=== PATIENT | male | born 1960 | race Caucasian/White ===

== ENCOUNTER 2017-08-17 12:07 | Observation (INO) | payer MEDICAID, OTHER ==
[~2017-08-17] VITALS: Ht 185.4 cm; Wt 113.6 kg
[~2017-08-17 12:07] MED LIST: ALBU8.5H8 IH; AZIT250T PO; PSEU-259 PO
[2017-08-17 12:30] LABS: BASOPHILS % (AUTO) 0.5 % (0-1); EOSINOPHILS # (AUTO) 0.4 X10'3 (0-0.9); EOSINOPHILS % (AUTO) 5.1 % (0-6); LYMPHOCYTES # (AUTO) 2.1 X10'3 (1.1-4.8); LYMPHOCYTES % (AUTO) 25.8 % (21-51); MEAN CORPUSCULAR HEMOGLOBIN 30.9 PG (27.0-31.0); MEAN CORPUSCULAR HGB CONC 34.9 % (33.0-36.5); MEAN CORPUSCULAR VOLUME 88.6 FL (78-98); MEAN PLATELET VOLUME 7.2 FL (7.4-10.4); MONOCYTES # (AUTO) 0.6 X10'3 (0-0.9); MONOCYTES % (AUTO) 7.1 % (2-12); NEUTROPHILS % (AUTO) 61.5 % (42-75); PLATELET COUNT 149 X10'3 (140-440); RED BLOOD COUNT 4.85 X10'6 (4.70-6.10); RED CELL DISTRIBUTION WIDTH 13.4 % (11.5-14.5); WHITE BLOOD COUNT 8.1 X10'3 (4.5-11.0)
[2017-08-17 12:38] LABS: PARTIAL THROMBOPLASTIN TIME 26 SECONDS (22-32); PROTHROMBIN TIME 10.5 SECONDS (9.0-12.0)
[2017-08-17 12:45] LABS: ALANINE AMINOTRANSFERASE 36 U/L (12-78); ALBUMIN 3.9 G/DL (3.4-5.0); ALKALINE PHOSPHATASE 158 IU/L (46-116); ANION GAP 11 (8-16); ASPARTATE AMINO TRANSFERASE 41 U/L (10-37); BILIRUBIN,TOTAL 0.5 MG/DL (0.1-1.0); BLOOD UREA NITROGEN 15 MG/DL (7-18); BUN/CREATININE RATIO 15.2 (5.4-32.0); CALCIUM 8.9 MG/DL (8.5-10.1); CHLORIDE 103 MMOL/L (99-107); CREATININE 0.99 MG/DL (0.60-1.10); GLUCOSE 102 MG/DL (70-104); POTASSIUM 3.8 MMOL/L (3.5-5.1); SODIUM 139 MMOL/L (135-145); TOTAL PROTEIN 7.7 G/DL (6.4-8.2); eGFR 77 ML/MIN
[2017-08-17] MEDS ORDERED: aspirin 325mg tablet PO ONE (12:50)
[2017-08-17] MEDS ORDERED: iohexol 350MG/ML 100ml bottle IV ONE (13:11)
[2017-08-17] MEDS ORDERED: LURA80TA3 PO (14:30)
[2017-08-17] MEDS ORDERED: FLUO20CA39 PO (14:30)
[2017-08-17] MEDS ORDERED: magnesium 4gm in 100ml NS 100 ML IV PRN (16:10)
[2017-08-17] MEDS ORDERED: HYDROcodone/acetaminophen 10/325mg tab PO PRN (16:10)
[2017-08-17] MEDS ORDERED: magnesium Cl slow-release 64mg tablet PO PRN (16:10)
[2017-08-17] MEDS ORDERED: magnesium hydroxide 30ml (MOM) UD suspension PO PRN (16:10)
[2017-08-17] MEDS ORDERED: morphine 4 MG/ML inj SYRINge IV PRN ×2 (16:10)
[2017-08-17] MEDS ORDERED: nitroGLYCERIN 0.4mg SUBLingual tab SL PRN (16:10)
[2017-08-17] MEDS ORDERED: potassium Cl 40MEQ/NS 500ml 500 ML IV PRN ×2 (16:10)
[2017-08-17] MEDS ORDERED: diphenhydrAMINE 25mg capsule PO PRN (16:10)
[2017-08-17] MEDS ORDERED: magnesium/D5W IVPB 50 ML IV PRN (16:10)
[2017-08-17] MEDS ORDERED: acetaminophen 325mg tablet PO PRN ×2 (16:10)
[2017-08-17] MEDS ORDERED: metoprolol tartrate 1mg/ml inj IV PRN (16:10)
[2017-08-17] MEDS ORDERED: mag hydrox/Alum hydrox/simeth 30ml oral suspension PO PRN (16:10)
[2017-08-17] MEDS ORDERED: potassium Cl 20 mEq SR tablet PO PRN ×2 (16:10)
[2017-08-17] MEDS: K and/or MAG REPLACEMENT MC SCH (16:10)
[2017-08-17] MEDS ORDERED: ondansetron/PF 4mg/2ml inj IV PRN (16:10)
[2017-08-17] MEDS ORDERED: HYDROcodone/acetaminophen 5mg/325mg tablet PO PRN (16:10)
[2017-08-17] MEDS ORDERED: regadenoson 0.4mg/5ml syringe IV PRN (16:10)
[2017-08-17] MEDS ORDERED: CAFFEINE CITRATE 60 MG/3 ML injection vial IV PRN (16:10)
[2017-08-17 17:23] LABS: HEMOGLOBIN A1C 5.7 % (4.5-6.2)
[2017-08-17] MEDS: enoxaparin 40mg/0.4ml syringe SUBCUT SCH (19:30)
[2017-08-17] MEDS: normal saline 1000ml 1,000 ML IV SCH (19:30)
[2017-08-17] MEDS ORDERED: lurasidone 20mg tablet PO SCH (21:00)
[2017-08-17 23:00] VITALS: BP 127/91
[2017-08-18] VITALS (12 sets, daily range): BP systolic 109–145; BP diastolic 65–101
[2017-08-18 00:52] LABS: ALANINE AMINOTRANSFERASE 29 U/L (12-78); ALBUMIN 3.2 G/DL (3.4-5.0); ALBUMIN/GLOBULIN RATIO 0.9 (1.1-1.5); ALKALINE PHOSPHATASE 132 IU/L (46-116); ANION GAP 8 (8-16); ASPARTATE AMINO TRANSFERASE 36 U/L (10-37); BASOPHILS % (AUTO) 0.5 % (0-1); BILIRUBIN,TOTAL 0.5 MG/DL (0.1-1.0); BLOOD UREA NITROGEN 13 MG/DL (7-18); BUN/CREATININE RATIO 13.5 (5.4-32.0); CALCIUM 8.3 MG/DL (8.5-10.1); CHLORIDE 105 MMOL/L (99-107); CHOL/HDL RATIO 5.2 (0.00-4.99); CHOLESTEROL 134 MG/DL (0-200); CREATININE 0.96 MG/DL (0.60-1.10); EOSINOPHILS # (AUTO) 0.5 X10'3 (0-0.9); EOSINOPHILS % (AUTO) 7.8 % (0-6); GLUCOSE 107 MG/DL (70-104); HDL CHOLESTEROL 26 MG/DL (35-60); HEMATOCRIT 41.4 % (42.0-52.0); LDL CHOLESTEROL 94 MG/DL (50-100); LYMPHOCYTES # (AUTO) 1.9 X10'3 (1.1-4.8); MEAN CORPUSCULAR HEMOGLOBIN 30.5 PG (27.0-31.0); MEAN CORPUSCULAR HGB CONC 33.8 % (33.0-36.5); MEAN CORPUSCULAR VOLUME 90.1 FL (78-98); MEAN PLATELET VOLUME 7.8 FL (7.4-10.4); MONOCYTES # (AUTO) 0.6 X10'3 (0-0.9); NEUTROPHILS # (AUTO) 3.4 X10'3 (1.8-7.7); NEUTROPHILS % (AUTO) 53.7 % (42-75); PHOSPHORUS 2.9 MG/DL (2.3-4.5); PLATELET COUNT 125 X10'3 (140-440); POTASSIUM 3.3 MMOL/L (3.5-5.1); RED BLOOD COUNT 4.59 X10'6 (4.70-6.10); RED CELL DISTRIBUTION WIDTH 12.2 % (11.5-14.5); SODIUM 140 MMOL/L (135-145); TOTAL CARBON DIOXIDE 27.5 MMOL/L (24-32); TOTAL PROTEIN 6.7 G/DL (6.4-8.2); TRIGLYCERIDES 209 MG/DL (20-135); WHITE BLOOD COUNT 6.4 X10'3 (4.5-11.0); eGFR 80 ML/MIN
[2017-08-18] MEDS: normal saline 1000ml 1,000 ML IV SCH ×3 (02:09→11:37)
[2017-08-18] MEDS: K and/or MAG REPLACEMENT MC SCH (07:31)
[2017-08-18] MEDS: enoxaparin 40mg/0.4ml syringe SUBCUT SCH (07:31)
[2017-08-18] MEDS ORDERED: FLUoxetine 20mg capsule PO SCH (08:00)
[2017-08-18] MEDS ORDERED: CAFFEINE CITRATE 60 MG/3 ML injection vial IV ONE (09:16)
[2017-08-18] MEDS ORDERED: regadenoson 0.4mg/5ml syringe IV ONE (09:16)
[2017-08-18] MEDS ORDERED: NITR0.4T51 SL (14:05)
[2017-08-18] MEDS ORDERED: CARV3.12 PO (14:06)
[2017-08-18] MEDS ORDERED: ASPI-611 PO (14:06)
[2017-08-18] MEDS ORDERED: ATOR20TA66 PO (14:52)
== END 2017-08-18 15:20 | disposition home or self-care (01) ==
LOC: ER 12:07 → ED HOLD 16:09 → PCU 3S 18:12
PROVIDERS: ADMIT Family Medicine; ATTEND Family Medicine
DX: R07.89 Other chest pain (principal); F20.9 Schizophrenia, unspecified; F31.9 Bipolar disorder, unspecified; I25.10 Atherosclerotic heart disease of native coronary artery without angina pectoris; J43.9 Emphysema, unspecified; F42.9 Obsessive-compulsive disorder, unspecified; F41.9 Anxiety disorder, unspecified; I25.2 Old myocardial infarction; F12.90 Cannabis use, unspecified, uncomplicated; F15.90 Other stimulant use, unspecified, uncomplicated; Z79.82 Long term (current) use of aspirin; Z85.038 Personal history of other malignant neoplasm of large intestine; Z87.891 Personal history of nicotine dependence; Z90.49 Acquired absence of other specified parts of digestive tract
CPT/HCPCS: 36415; 71045; 71275; 78452; 80053; 80061; 83036; 83735; 84100; 84484; 85025; 85610; 85730; 87070; 93005; 93017; 93306; 96361; 96372; 96374; 99285; A9500; G0378; J1650; J7030; Q9967

== ENCOUNTER 2017-08-28 16:46 | Emergency (ER) | payer MEDICAID, OTHER ==
[~2017-08-28] VITALS: Ht 185.4 cm; Wt 116.2 kg
[~2017-08-28 16:46] MED LIST changes: -ALBU8.5H8 IH; +ASPI-611 PO; +ATOR20TA66 PO; -AZIT250T PO; +CARV3.12 PO; +FLUO20CA39 PO; +LURA80TA3 PO; +NITR0.4T51 SL; -PSEU-259 PO
[2017-08-28 16:53] VITALS: BP 148/88
[2017-08-28] MEDS ORDERED: ACYC-202 PO (17:08)
[2017-08-28] MEDS ORDERED: SULF1TAB49 PO (17:08)
[2017-08-28] MEDS ORDERED: sulfamethoxazole/trimethoprim DS (800/160mg) tablet PO ONE (17:10)
== END 2017-08-28 17:29 | disposition home or self-care (01) ==
LOC: ER 16:46
DX: R21 Rash and other nonspecific skin eruption (principal); I25.10 Atherosclerotic heart disease of native coronary artery without angina pectoris; I25.2 Old myocardial infarction; J43.9 Emphysema, unspecified; F12.90 Cannabis use, unspecified, uncomplicated; F15.90 Other stimulant use, unspecified, uncomplicated; Z56.0 Unemployment, unspecified; Z88.8 Allergy status to other drugs, medicaments and biological substances; Z79.82 Long term (current) use of aspirin; Z79.899 Other long term (current) drug therapy
CPT/HCPCS: 99283

== ENCOUNTER 2017-10-30 11:15 | Emergency (ER) | payer MEDICAID, OTHER ==
[~2017-10-30] VITALS: Ht 185.4 cm; Wt 113.6 kg
[~2017-10-30 11:15] MED LIST changes: -ASPI-611 PO
[2017-10-30] MEDS ORDERED: nitroGLYCERIN 0.4mg SUBLingual tab SL PRN (11:30)
[2017-10-30] MEDS ORDERED: aspirin 81mg tab.chew PO ONE (11:30)
[2017-10-30 11:37] LABS: BASOPHILS % (AUTO) 0.6 % (0-1); EOSINOPHILS # (AUTO) 0.2 X10'3 (0-0.9); EOSINOPHILS % (AUTO) 2.1 % (0-6); HEMATOCRIT 43.7 % (42.0-52.0); HEMOGLOBIN 15.3 g/dl (14.0-17.9); LYMPHOCYTES # (AUTO) 1.9 X10'3 (1.1-4.8); LYMPHOCYTES % (AUTO) 23.4 % (21-51); MEAN CORPUSCULAR HEMOGLOBIN 32.1 PG (27.0-31.0); MEAN CORPUSCULAR HGB CONC 34.9 % (33.0-36.5); MEAN PLATELET VOLUME 6.9 FL (7.4-10.4); MONOCYTES # (AUTO) 0.6 X10'3 (0-0.9); MONOCYTES % (AUTO) 6.9 % (2-12); NEUTROPHILS # (AUTO) 5.5 X10'3 (1.8-7.7); PLATELET COUNT 162 X10'3 (140-440); RED BLOOD COUNT 4.75 X10'6 (4.70-6.10); RED CELL DISTRIBUTION WIDTH 16.9 % (11.5-14.5); WHITE BLOOD COUNT 8.2 X10'3 (4.5-11.0)
[2017-10-30 11:47] LABS: PARTIAL THROMBOPLASTIN TIME 24 SECONDS (22-32)
[2017-10-30 11:59] LABS: ALANINE AMINOTRANSFERASE 87 U/L (12-78); ALBUMIN 3.7 G/DL (3.4-5.0); ALBUMIN/GLOBULIN RATIO 0.9 (1.1-1.5); ALKALINE PHOSPHATASE 165 IU/L (46-116); ANION GAP 15 (8-16); ASPARTATE AMINO TRANSFERASE 202 U/L (10-37); BILIRUBIN,TOTAL 0.9 MG/DL (0.1-1.0); BLOOD UREA NITROGEN 24 MG/DL (7-18); BUN/CREATININE RATIO 18.3 (5.4-32.0); CALCIUM 8.5 MG/DL (8.5-10.1); CHLORIDE 94 MMOL/L (99-107); CREATININE 1.31 MG/DL (0.60-1.10); GLUCOSE 116 MG/DL (70-104); SODIUM 132 MMOL/L (135-145); TOTAL CARBON DIOXIDE 23.3 MMOL/L (24-32); TOTAL PROTEIN 7.6 G/DL (6.4-8.2); eGFR 56 ML/MIN
[2017-10-30] MEDS ORDERED: potassium chloride 8mEq ER tablet PO ONE (12:15)
[2017-10-30] MEDS ORDERED: normal saline 1000ML IV soln IVB ONE (12:15)
[2017-10-30 13:09] VITALS: BP 162/91
== END 2017-10-30 13:12 | disposition home or self-care (01) ==
LOC: ER 11:15
DX: E87.6 Hypokalemia (principal); R07.9 Chest pain, unspecified; I25.10 Atherosclerotic heart disease of native coronary artery without angina pectoris; I25.2 Old myocardial infarction; F15.10 Other stimulant abuse, uncomplicated; F12.10 Cannabis abuse, uncomplicated; Z88.8 Allergy status to other drugs, medicaments and biological substances
CPT/HCPCS: 36415; 71045; 80053; 83880; 84484; 85025; 85610; 85730; 96360; 99285; J7030

== ENCOUNTER 2018-04-01 12:03 | Inpatient (IN) | payer MEDICAID ==
[~2018-04-01] VITALS: Ht 185.4 cm; Wt 136.3 kg
[2018-04-01] MEDS: sodium bicarbonate (8.4%) inj. 50 MEQ in sodium chloride 0.45% 1,000 ML IV SCH ×2 (01:05→17:47)
--- NOTE | 2018-04-01 12:04 | NUR ---
Patient checked in and went right into the bathroom delaying ekg.
[2018-04-01 12:39] LABS: BASOPHILS % (AUTO) 0 % (0-1); EOSINOPHILS # (AUTO) 0.1 X10'3 (0-0.9); EOSINOPHILS % (AUTO) 1.2 % (0-6); HEMATOCRIT 45.9 % (42.0-52.0); HEMOGLOBIN 15.6 g/dl (14.0-17.9); LYMPHOCYTES # (AUTO) 0.5 X10'3 (1.1-4.8); LYMPHOCYTES % (AUTO) 5.1 % (21-51); MEAN CORPUSCULAR HEMOGLOBIN 31.1 PG (27.0-31.0); MEAN CORPUSCULAR VOLUME 91.3 FL (78-98); MEAN PLATELET VOLUME 7.2 FL (7.4-10.4); MONOCYTES # (AUTO) 0.1 X10'3 (0-0.9); MONOCYTES % (AUTO) 1.5 % (2-12); NEUTROPHILS # (AUTO) 8.5 X10'3 (1.8-7.7); NEUTROPHILS % (AUTO) 92.2 % (42-75); PLATELET COUNT 211 X10'3 (140-440); RED BLOOD COUNT 5.03 X10'6 (4.70-6.10); RED CELL DISTRIBUTION WIDTH 13.9 % (11.5-14.5); WHITE BLOOD COUNT 9.3 X10'3 (4.5-11.0)
[2018-04-01 12:55] LABS: PROTHROMBIN TIME 9.8 SECONDS (9.0-12.0)
[2018-04-01 12:56] LABS: PARTIAL THROMBOPLASTIN TIME 27 SECONDS (22-32)
[2018-04-01 12:57] LABS: ALANINE AMINOTRANSFERASE 445 U/L (12-78); ALBUMIN 3.8 G/DL (3.4-5.0); ALBUMIN/GLOBULIN RATIO 0.8 (1.1-1.5); ALKALINE PHOSPHATASE 123 IU/L (46-116); ANION GAP 25 (8-16); ASPARTATE AMINO TRANSFERASE 760 U/L (10-37); BILIRUBIN,TOTAL 0.4 MG/DL (0.1-1.0); BLOOD UREA NITROGEN 138 MG/DL (7-18); BUN/CREATININE RATIO 12.1 (5.4-32.0); CALCIUM 6.1 MG/DL (8.5-10.1); CHLORIDE 89 MMOL/L (99-107); CREATININE 11.44 MG/DL (0.60-1.10); GLUCOSE 76 MG/DL (70-104); POTASSIUM 5.5 MMOL/L (3.5-5.1); SODIUM 130 MMOL/L (135-145); TOTAL CARBON DIOXIDE 16.1 MMOL/L (24-32); TOTAL PROTEIN 8.4 G/DL (6.4-8.2); eGFR 5 ML/MIN
[2018-04-01] MEDS ORDERED: insulin regular, human 10 units/0.1 ml syringe IV ONE (13:40)
[2018-04-01] MEDS ORDERED: dextrose 50%-water 50ml dispensing syringe IV ONE (13:40)
[2018-04-01] MEDS ORDERED: normal saline 1000ML IV soln IV ONE (13:40)
[2018-04-01] MEDS ORDERED: calcium gluconate inj. 1 GM in normal saline 100ml IV soln 100 ML IV ONE (13:40)
[2018-04-01] MEDS ORDERED: sodium bicarbonate (8.4%) 1 mEq/ml syringe IV ONE (13:40)
[2018-04-01 13:54] LABS: MAGNESIUM 3.5 MG/DL (1.5-2.4)
[2018-04-01] MEDS ORDERED: FLUO20CA39 PO (14:25)
[2018-04-01] MEDS ORDERED: CefTRIAXone/D5W-Rocephin 1gm 50 ML IV ONE (14:50)
[2018-04-01] MEDS ORDERED: thiamine 100mg/ml 2ml inj. IV ONE (14:55)
[2018-04-01] MEDS ORDERED: LORazepam 2 mg/ml vial IV PRN (14:55)
[2018-04-01] MEDS ORDERED: diphenhydrAMINE 50 mg/ml inj IV PRN (14:55)
[2018-04-01] MEDS ORDERED: LORazepam 1 MG tablet PO PRN (14:55)
[2018-04-01] MEDS ORDERED: dextrose 50%-water 50ml dispensing syringe IV PRN ×3 (14:55→17:40)
[2018-04-01] MEDS ORDERED: sodium bicarbonate inj. 44.6 MEQ in sodium chloride 0.45% 1,000.4444 ML IV SCH (15:00)
[2018-04-01] MEDS ORDERED: nitroGLYCERIN 0.4mg SUBLingual tab SL PRN (16:00)
--- NOTE | 2018-04-01 16:18 | NUR ---
ATTEMPTED TO CALL REPORT TO JEFERSON. HE IS IN AN ISO ROOM. WILL CALL BACK IN 10MIN
[2018-04-01 16:52] VITALS: BP 148/83
[2018-04-01 17:25] LABS: CREATINE KINASE 29467 U/L (39-308)
--- NOTE | 2018-04-01 17:36 | NUR ---
PAGER ID: [phone] MESSAGE: [id number] Aris Gaby: Blood sugar 59, no hypoglycemic orders in. Do you want me to put them in? EDNA Boswell Ext [phone]
[2018-04-01] MEDS ORDERED: dextrose ORAL solution 15 GM/59 ML bottle PO PRN ×2 (17:40)
[2018-04-01] MEDS ORDERED: glucagon, human recombinant 1mg kit SUBCUT PRN (17:40)
--- NOTE | 2018-04-01 18:15 | NUR ---
Patient in room PCU 3012. I have received report from Elbert BISHOP and had the opportunity to ask questions and assume patient care.
--- NOTE | 2018-04-01 18:30 | NUR ---
Problems reprioritized. Patient report given, questions answered & plan of care reviewed with EDNA Bautista.
[2018-04-01 19:00] VITALS: BP 133/72
[2018-04-01 20:00] LABS: ALBUMIN 3.2 G/DL (3.4-5.0); ANION GAP 27 (8-16); BLOOD UREA NITROGEN 145 MG/DL (7-18); BUN/CREATININE RATIO 13.2 (5.4-32.0); CHLORIDE 90 MMOL/L (99-107); CREATININE 10.98 MG/DL (0.60-1.10); GLUCOSE 133 MG/DL (70-104); POTASSIUM 4.6 MMOL/L (3.5-5.1); SODIUM 132 MMOL/L (135-145); eGFR 5 ML/MIN
[2018-04-01 20:14] LABS: CALCIUM 5.7 MG/DL (8.5-10.1); TOTAL CARBON DIOXIDE 14.8 MMOL/L (24-32)
[2018-04-01] MEDS ORDERED: calcium chloride inj. 1,000 MG in normal saline 100ml IV soln 90 ML IV ONE ×2 (20:30→20:45)
--- NOTE | 2018-04-01 20:33 | NUR ---
Notification; Don Marin NP notified of Critical labs Ca 5.7 CO2 14.8 New Orders received Replace Ca with Calcium Chloride 1 Gram IV now.
[2018-04-01 21:01] LABS: CREATINE KINASE 30373 U/L (39-308)
[2018-04-01] MEDS: heparin, porcine 5000 units/ml vial SQ SCH (21:56)
[2018-04-01] MEDS: docusate sod 100mg capsule PO SCH (21:56)
[2018-04-01] MEDS: lurasidone 20mg tablet PO SCH (21:57)
[2018-04-01] MEDS: carVEDilol 3.125mg tablet PO SCH (21:57)
[2018-04-01 23:00] VITALS: BP 126/67
[2018-04-02] VITALS (7 sets, daily range): BP systolic 124–146; BP diastolic 61–85
[2018-04-02 00:47] LABS: CLARITY,URINE CLEAR (Clear); COLOR,URINE YELLOW (Yellow); GLUCOSE, URINE NEGATIVE (Neg); KETONES,URINE NEGATIVE (Neg); LEUKOCYTE ESTERASE ,URINE NEGATIVE (Neg); NITRITES, URINE NEGATIVE (Neg); OCCULT BLOOD,URINE LARGE (Neg); PROTEIN,URINE NEGATIVE (Neg); UROBILINOGEN,URINE 0.2 E.U/dL (0.2-1.0)
[2018-04-02 00:48] LABS: UA COLLECTION TYPE CLN CATCH MIDSTREAM
[2018-04-02 00:50] LABS: URINE AMPHETAMINE SCREEN POSITIVE (Neg); URINE BARBITUATE SCREEN NEGATIVE (Neg); URINE BENZODIAZEPINES SCREEN NEGATIVE (Neg); URINE CANNABINOID SCREEN NEGATIVE (Neg); URINE COCAINE SCREEN NEGATIVE (Neg); URINE METHADONE SCREEN NEGATIVE (Neg); URINE OPIATE SCREEN NEGATIVE (Neg); URINE PHENCYCLIDINE SCREEN NEGATIVE (Neg)
[2018-04-02 00:59] LABS: BACTERIA,URINE NONE SEEN /HPF (Neg); MUCUS STRANDS NONE SEEN /LPF (Neg); RBC,URINE 0-2 /HPF (0-2); SQUAMOUS EPITHELIAL CELL,UR NONE SEEN /LPF (FEW); WBC,URINE 0-4 /HPF (0-4)
[2018-04-02 03:33] LABS: PROTHROMBIN TIME 10.4 SECONDS (9.0-12.0)
[2018-04-02 03:44] LABS: ALANINE AMINOTRANSFERASE 293 U/L (12-78); ALBUMIN 2.9 G/DL (3.4-5.0); ALBUMIN/GLOBULIN RATIO 0.9 (1.1-1.5); ALKALINE PHOSPHATASE 87 IU/L (46-116); AMYLASE 37 U/L (25-115); ANION GAP 20 (8-16); ASPARTATE AMINO TRANSFERASE 390 U/L (10-37); BILIRUBIN,TOTAL 0.4 MG/DL (0.1-1.0); BLOOD UREA NITROGEN 145 MG/DL (7-18); BUN/CREATININE RATIO 13.3 (5.4-32.0); CHLORIDE 94 MMOL/L (99-107); CREATININE 10.87 MG/DL (0.60-1.10); GLUCOSE 77 MG/DL (70-104); POTASSIUM 3.8 MMOL/L (3.5-5.1); SODIUM 133 MMOL/L (135-145); TOTAL CARBON DIOXIDE 18.6 MMOL/L (24-32); TOTAL PROTEIN 6.2 G/DL (6.4-8.2); eGFR 5 ML/MIN
[2018-04-02 03:46] LABS: PHOSPHORUS 10.4 MG/DL (2.3-4.5)
[2018-04-02 03:48] LABS: CALCIUM 5.8 MG/DL (8.5-10.1)
[2018-04-02 03:55] LABS: BASOPHILS % (AUTO) 0.5 % (0-1); EOSINOPHILS # (AUTO) 0.2 X10'3 (0-0.9); EOSINOPHILS % (AUTO) 3.6 % (0-6); HEMATOCRIT 35.4 % (42.0-52.0); HEMOGLOBIN 12.3 g/dl (14.0-17.9); LYMPHOCYTES # (AUTO) 0.9 X10'3 (1.1-4.8); LYMPHOCYTES % (AUTO) 15.8 % (21-51); MEAN CORPUSCULAR HEMOGLOBIN 31.3 PG (27.0-31.0); MEAN CORPUSCULAR HGB CONC 34.8 g/dL (33.0-36.5); MEAN CORPUSCULAR VOLUME 89.7 FL (78-98); MEAN PLATELET VOLUME 7.7 FL (7.4-10.4); MONOCYTES # (AUTO) 0.5 X10'3 (0-0.9); MONOCYTES % (AUTO) 8.6 % (2-12); NEUTROPHILS # (AUTO) 4.2 X10'3 (1.8-7.7); NEUTROPHILS % (AUTO) 71.5 % (42-75); PLATELET COUNT 136 X10'3 (140-440); RED BLOOD COUNT 3.94 X10'6 (4.70-6.10); RED CELL DISTRIBUTION WIDTH 13.7 % (11.5-14.5); WHITE BLOOD COUNT 5.8 X10'3 (4.5-11.0)
--- NOTE | 2018-04-02 04:04 | NUR ---
Notification; Don Marin NP notified of Critical labs Ca 5.8 New Orders received Replace Ca with Calcium Chloride 1 Gram IV now.
[2018-04-02] MEDS ORDERED: calcium chloride 100 MG/1 ML inj IV ONE (04:10)
[2018-04-02] MEDS ORDERED: calcium chloride inj. 1,000 MG in normal saline 100ml IV soln 90 ML IV ONE (04:20)
[2018-04-02] MEDS: sodium bicarbonate (8.4%) inj. 50 MEQ in sodium chloride 0.45% 1,000 ML IV SCH ×4 (05:10→23:00)
--- NOTE | 2018-04-02 06:21 | NUR ---
Problems reprioritized. Patient report given, questions answered & plan of care reviewed with Flor BISHOP.
[2018-04-02] MEDS: heparin, porcine 5000 units/ml vial SQ SCH ×2 (07:41→20:12)
[2018-04-02] MEDS: carVEDilol 3.125mg tablet PO SCH ×2 (07:41→20:12)
[2018-04-02] MEDS: docusate sod 100mg capsule PO SCH ×2 (07:41→20:12)
[2018-04-02] MEDS: atorvastatin 20mg tablet PO SCH (07:41)
[2018-04-02] MEDS: FLUoxetine 10mg capsule PO SCH (07:42)
[2018-04-02] MEDS ORDERED: FLU VACC QUAD 2018(5 YR UP)/PF 60 MCG/0.5 ML SYRINGE IM ONE (10:00)
--- NOTE | 2018-04-02 11:40 | NUR ---
Patient in room PCU 3012. I have received report from Flor BISHOP and had the opportunity to ask questions and assume patient care.
--- NOTE | 2018-04-02 18:36 | NUR ---
Problems reprioritized. Patient report given, questions answered & plan of care reviewed with Tien BISHOP.
[2018-04-02 19:45] LABS: CREATINE KINASE 12090 U/L (39-308)
[2018-04-02] MEDS: lurasidone 20mg tablet PO SCH (21:05)
[2018-04-03 02:00] VITALS: BP 111/68
[2018-04-03 03:12] LABS: TOTAL PROTEIN,URINE RANDOM 11.8 MG/DL
[2018-04-03 03:13] LABS: CLARITY,URINE CLEAR (Clear); COLOR,URINE STRAW (Yellow); GLUCOSE, URINE NEGATIVE (Neg); PROTEIN,URINE NEGATIVE (Neg); UA COLLECTION TYPE FOLEY CATH
[2018-04-03 03:14] LABS: KETONES,URINE NEGATIVE (Neg); LEUKOCYTE ESTERASE ,URINE NEGATIVE (Neg); NITRITES, URINE NEGATIVE (Neg); OCCULT BLOOD,URINE LARGE (Neg); UROBILINOGEN,URINE 0.2 E.U/dL (0.2-1.0)
[2018-04-03 03:16] LABS: BACTERIA,URINE NONE SEEN /HPF (Neg); WBC,URINE 0-4 /HPF (0-4)
[2018-04-03 03:17] LABS: SQUAMOUS EPITHELIAL CELL,UR NONE SEEN /LPF (FEW)
[2018-04-03] MEDS: sodium bicarbonate (8.4%) inj. 50 MEQ in sodium chloride 0.45% 1,000 ML IV SCH (05:35)
[2018-04-03 06:14] LABS: BASOPHILS % (AUTO) 0.5 % (0-1); EOSINOPHILS # (AUTO) 0.4 X10'3 (0-0.9); EOSINOPHILS % (AUTO) 8.1 % (0-6); LYMPHOCYTES # (AUTO) 1.1 X10'3 (1.1-4.8); LYMPHOCYTES % (AUTO) 24.2 % (21-51); MEAN CORPUSCULAR HEMOGLOBIN 31.5 PG (27.0-31.0); MEAN CORPUSCULAR HGB CONC 35.3 g/dL (33.0-36.5); MEAN CORPUSCULAR VOLUME 89.2 FL (78-98); MEAN PLATELET VOLUME 7.8 FL (7.4-10.4); MONOCYTES # (AUTO) 0.3 X10'3 (0-0.9); MONOCYTES % (AUTO) 7.6 % (2-12); NEUTROPHILS # (AUTO) 2.6 X10'3 (1.8-7.7); NEUTROPHILS % (AUTO) 59.6 % (42-75); PLATELET COUNT 125 X10'3 (140-440); RED BLOOD COUNT 3.81 X10'6 (4.70-6.10); RED CELL DISTRIBUTION WIDTH 14.1 % (11.5-14.5); WHITE BLOOD COUNT 4.4 X10'3 (4.5-11.0)
--- NOTE | 2018-04-03 06:20 | NUR ---
Problems reprioritized. Patient report given, questions answered & plan of care reviewed with AMALIA. Addendum: 04/03/18 at 0620 by Conrado Lucio RN Amended: Links added.
[2018-04-03 06:23] LABS: ALANINE AMINOTRANSFERASE 206 U/L (12-78); ALBUMIN 2.6 G/DL (3.4-5.0); ALBUMIN/GLOBULIN RATIO 0.7 (1.1-1.5); ALKALINE PHOSPHATASE 100 IU/L (46-116); AMYLASE 42 U/L (25-115); ANION GAP 16 (8-16); ASPARTATE AMINO TRANSFERASE 182 U/L (10-37); BILIRUBIN,TOTAL 0.3 MG/DL (0.1-1.0); BLOOD UREA NITROGEN 142 MG/DL (7-18); BUN/CREATININE RATIO 14.5 (5.4-32.0); CALCIUM 6.1 MG/DL (8.5-10.1); CHLORIDE 96 MMOL/L (99-107); GLUCOSE 90 MG/DL (70-104); MAGNESIUM 2.8 MG/DL (1.5-2.4); PHOSPHORUS 8.3 MG/DL (2.3-4.5); POTASSIUM 3.2 MMOL/L (3.5-5.1); SODIUM 136 MMOL/L (135-145); TOTAL PROTEIN 6.1 G/DL (6.4-8.2); eGFR 5 ML/MIN
[2018-04-03 06:30] VITALS: BP 99/59
[2018-04-03] MEDS: docusate sod 100mg capsule PO SCH ×2 (07:27→20:00)
[2018-04-03] MEDS: FLUoxetine 10mg capsule PO SCH (07:27)
[2018-04-03] MEDS: atorvastatin 20mg tablet PO SCH (07:27)
[2018-04-03] MEDS: heparin, porcine 5000 units/ml vial SQ SCH ×2 (07:28→20:05)
[2018-04-03] MEDS: carVEDilol 3.125mg tablet PO SCH ×2 (07:32→20:04)
[2018-04-03 11:26] VITALS: BP 122/68
[2018-04-03] MEDS ORDERED: potassium Cl 40MEQ/NS 500ml 500 ML IV PRN ×4 (12:35→12:45)
[2018-04-03] MEDS ORDERED: potassium Cl 20 mEq SR tablet PO PRN ×4 (12:35→12:45)
[2018-04-03] MEDS: calcium acetate 667mg (PhosLO) capsule PO SCH ×2 (12:44→18:00)
[2018-04-03 15:00] VITALS: BP 103/52
--- NOTE | 2018-04-03 15:55 | NUR ---
Called phone report to Evy BISHOP. Transferred pt. to 349A via w/c with all belongings in stable condition.
[2018-04-03 15:56] VITALS: BP 122/82
[2018-04-03 18:30] VITALS: BP 127/83
[2018-04-03 20:04] LABS: CREATINE KINASE 7209 U/L (39-308)
[2018-04-03] MEDS: lurasidone 20mg tablet PO SCH (21:13)
[2018-04-04] VITALS: BP 103/47
--- NOTE | 2018-04-04 06:13 | NUR ---
Problems reprioritized. Patient report given, questions answered & plan of care reviewed with JODIE. Addendum: 04/04/18 at 0614 by Conrado Lucio RN Amended: Links added.
[2018-04-04 06:16] LABS: BASOPHILS % (AUTO) 0.4 % (0-1); EOSINOPHILS # (AUTO) 0.4 X10'3 (0-0.9); EOSINOPHILS % (AUTO) 8.5 % (0-6); HEMATOCRIT 35.5 % (42.0-52.0); HEMOGLOBIN 12.4 g/dl (14.0-17.9); LYMPHOCYTES # (AUTO) 0.9 X10'3 (1.1-4.8); LYMPHOCYTES % (AUTO) 19.2 % (21-51); MEAN CORPUSCULAR HEMOGLOBIN 31.5 PG (27.0-31.0); MEAN CORPUSCULAR HGB CONC 34.9 g/dL (33.0-36.5); MEAN CORPUSCULAR VOLUME 90.1 FL (78-98); MEAN PLATELET VOLUME 7.8 FL (7.4-10.4); MONOCYTES # (AUTO) 0.4 X10'3 (0-0.9); MONOCYTES % (AUTO) 7.5 % (2-12); NEUTROPHILS # (AUTO) 3.1 X10'3 (1.8-7.7); NEUTROPHILS % (AUTO) 64.4 % (42-75); PLATELET COUNT 138 X10'3 (140-440); RED BLOOD COUNT 3.94 X10'6 (4.70-6.10); WHITE BLOOD COUNT 4.8 X10'3 (4.5-11.0)
[2018-04-04 06:25] LABS: PROTHROMBIN TIME 9.9 SECONDS (9.0-12.0)
[2018-04-04 06:43] LABS: ALANINE AMINOTRANSFERASE 180 U/L (12-78); ALBUMIN/GLOBULIN RATIO 0.8 (1.1-1.5); ALKALINE PHOSPHATASE 103 IU/L (46-116); AMYLASE 54 U/L (25-115); ANION GAP 19 (8-16); ASPARTATE AMINO TRANSFERASE 114 U/L (10-37); BILIRUBIN,TOTAL 0.4 MG/DL (0.1-1.0); BLOOD UREA NITROGEN 128 MG/DL (7-18); BUN/CREATININE RATIO 14.9 (5.4-32.0); CALCIUM 7.5 MG/DL (8.5-10.1); CHLORIDE 97 MMOL/L (99-107); CREATININE 8.61 MG/DL (0.60-1.10); GLUCOSE 94 MG/DL (70-104); MAGNESIUM 2.5 MG/DL (1.5-2.4); PHOSPHORUS 6.9 MG/DL (2.3-4.5); POTASSIUM 3.4 MMOL/L (3.5-5.1); SODIUM 141 MMOL/L (135-145); TOTAL CARBON DIOXIDE 25.3 MMOL/L (24-32); TOTAL PROTEIN 6.8 G/DL (6.4-8.2); eGFR 6 ML/MIN
[2018-04-04 07:23] VITALS: BP 135/83
[2018-04-04] MEDS: docusate sod 100mg capsule PO SCH ×2 (07:59→21:51)
[2018-04-04] MEDS: FLUoxetine 10mg capsule PO SCH (07:59)
[2018-04-04] MEDS: atorvastatin 20mg tablet PO SCH (07:59)
[2018-04-04] MEDS: calcium acetate 667mg (PhosLO) capsule PO SCH ×3 (07:59→21:50)
[2018-04-04] MEDS: carVEDilol 3.125mg tablet PO SCH ×2 (07:59→21:51)
[2018-04-04] MEDS: heparin, porcine 5000 units/ml vial SQ SCH ×2 (08:00→21:55)
--- NOTE | 2018-04-04 18:30 | NUR ---
Patient in room [facility] 349. I have received report from EDNA Ratliff and had the opportunity to ask questions and assume patient care.
[2018-04-04 19:30] VITALS: BP 151/93
[2018-04-04 20:22] LABS: CREATINE KINASE 3314 U/L (39-308)
[2018-04-04] MEDS: lurasidone 20mg tablet PO SCH (21:51)
[2018-04-05] VITALS: BP 138/95
[2018-04-05 05:13] LABS: BASOPHILS % (AUTO) 0.5 % (0-1); EOSINOPHILS # (AUTO) 0.5 X10'3 (0-0.9); EOSINOPHILS % (AUTO) 8.8 % (0-6); HEMATOCRIT 38.7 % (42.0-52.0); HEMOGLOBIN 13.3 g/dl (14.0-17.9); LYMPHOCYTES # (AUTO) 1.3 X10'3 (1.1-4.8); LYMPHOCYTES % (AUTO) 22.1 % (21-51); MEAN CORPUSCULAR HGB CONC 34.4 g/dL (33.0-36.5); MEAN CORPUSCULAR VOLUME 90.2 FL (78-98); MEAN PLATELET VOLUME 7.5 FL (7.4-10.4); MONOCYTES # (AUTO) 0.5 X10'3 (0-0.9); MONOCYTES % (AUTO) 8.7 % (2-12); NEUTROPHILS # (AUTO) 3.6 X10'3 (1.8-7.7); NEUTROPHILS % (AUTO) 59.9 % (42-75); PLATELET COUNT 166 X10'3 (140-440); RED BLOOD COUNT 4.29 X10'6 (4.70-6.10); RED CELL DISTRIBUTION WIDTH 13.9 % (11.5-14.5)
[2018-04-05 05:28] LABS: ALANINE AMINOTRANSFERASE 176 U/L (12-78); ALBUMIN 3.2 G/DL (3.4-5.0); ALBUMIN/GLOBULIN RATIO 0.8 (1.1-1.5); ALKALINE PHOSPHATASE 108 IU/L (46-116); ANION GAP 11 (8-16); ASPARTATE AMINO TRANSFERASE 95 U/L (10-37); BILIRUBIN,TOTAL 0.5 MG/DL (0.1-1.0); BLOOD UREA NITROGEN 117 MG/DL (7-18); BUN/CREATININE RATIO 16.5 (5.4-32.0); CALCIUM 8.7 MG/DL (8.5-10.1); CHLORIDE 97 MMOL/L (99-107); CREATININE 7.11 MG/DL (0.60-1.10); GLUCOSE 101 MG/DL (70-104); MAGNESIUM 2.3 MG/DL (1.5-2.4); PHOSPHORUS 5.9 MG/DL (2.3-4.5); POTASSIUM 3.4 MMOL/L (3.5-5.1); SODIUM 138 MMOL/L (135-145); TOTAL CARBON DIOXIDE 29.7 MMOL/L (24-32); TOTAL PROTEIN 7.3 G/DL (6.4-8.2); eGFR 8 ML/MIN
[2018-04-05 07:40] VITALS: BP 136/84
[2018-04-05] MEDS: atorvastatin 20mg tablet PO SCH (08:16)
[2018-04-05] MEDS: calcium acetate 667mg (PhosLO) capsule PO SCH ×3 (08:16→18:01)
[2018-04-05] MEDS: FLUoxetine 10mg capsule PO SCH (08:16)
[2018-04-05] MEDS: carVEDilol 3.125mg tablet PO SCH ×2 (08:16→19:27)
[2018-04-05] MEDS: docusate sod 100mg capsule PO SCH ×2 (08:16→19:27)
[2018-04-05] MEDS: heparin, porcine 5000 units/ml vial SQ SCH ×2 (08:17→19:31)
[2018-04-05 11:48] VITALS: BP 138/84
[2018-04-05 13:20] LABS: ALBUMIN 3.1 g/dL (2.9-4.4); BETA GLOBULIN 0.9 g/dL (0.7-1.3); GAMMA GLOBULIN 1.2 g/dL (0.4-1.8); GLOBULIN, TOTAL 3.2 g/dL (2.2-3.9); M-SPIKE Not Observed g/dL (Not Observed); PROTEIN, TOTAL, SERUM 6.3 g/dL (6.0-8.5)
--- NOTE | 2018-04-05 13:56 | NUR ---
Initial: Pt admit w/ chest pain, etoh abuse, NANCY, and positive for meth. PO 100% renal meals meeting needs and kidney function improving per MD note w/ improved urine output. On Phos binder. JOHN d/w RN for thiamin per MD approval given etoh hx. LBM 04/03. Will continue to monitor. Rec: 1. continue renal diet w/ phos binder per MD 2. thiamin for etoh hx per MD approval 3. wt per rx Addendum: 04/05/18 at [address] Amended: Links added.
--- NOTE | 2018-04-05 18:38 | NUR ---
Problems reprioritized. Patient report given, questions answered & plan of care reviewed with EDNA ZUÑIGA.
[2018-04-05 19:00] VITALS: BP 134/78
[2018-04-05] MEDS: lurasidone 20mg tablet PO SCH (19:27)
[2018-04-05 20:07] LABS: CREATINE KINASE 1262 U/L (39-308)
[2018-04-05] MEDS: acetaminophen 325mg tablet PO PRN (20:53)
[2018-04-06] VITALS: BP 118/80
[2018-04-06 05:24] LABS: BASOPHILS % (AUTO) 0.4 % (0-1); EOSINOPHILS # (AUTO) 0.5 X10'3 (0-0.9); EOSINOPHILS % (AUTO) 8.3 % (0-6); HEMATOCRIT 39.4 % (42.0-52.0); HEMOGLOBIN 13.7 g/dl (14.0-17.9); LYMPHOCYTES # (AUTO) 1.5 X10'3 (1.1-4.8); LYMPHOCYTES % (AUTO) 23.1 % (21-51); MEAN CORPUSCULAR HEMOGLOBIN 31.6 PG (27.0-31.0); MEAN CORPUSCULAR HGB CONC 34.9 g/dL (33.0-36.5); MEAN CORPUSCULAR VOLUME 90.5 FL (78-98); MEAN PLATELET VOLUME 7.6 FL (7.4-10.4); MONOCYTES # (AUTO) 0.5 X10'3 (0-0.9); MONOCYTES % (AUTO) 7.5 % (2-12); NEUTROPHILS # (AUTO) 3.9 X10'3 (1.8-7.7); NEUTROPHILS % (AUTO) 60.7 % (42-75); PLATELET COUNT 172 X10'3 (140-440); RED BLOOD COUNT 4.35 X10'6 (4.70-6.10); RED CELL DISTRIBUTION WIDTH 13.8 % (11.5-14.5); WHITE BLOOD COUNT 6.4 X10'3 (4.5-11.0)
[2018-04-06 05:33] LABS: ALANINE AMINOTRANSFERASE 165 U/L (12-78); ALBUMIN 3.3 G/DL (3.4-5.0); ALBUMIN/GLOBULIN RATIO 0.8 (1.1-1.5); ALKALINE PHOSPHATASE 102 IU/L (46-116); ANION GAP 12 (8-16); ASPARTATE AMINO TRANSFERASE 86 U/L (10-37); BILIRUBIN,TOTAL 0.4 MG/DL (0.1-1.0); BLOOD UREA NITROGEN 102 MG/DL (7-18); BUN/CREATININE RATIO 17.7 (5.4-32.0); CALCIUM 8.8 MG/DL (8.5-10.1); CHLORIDE 98 MMOL/L (99-107); CREATININE 5.75 MG/DL (0.60-1.10); GLUCOSE 98 MG/DL (70-104); PHOSPHORUS 5.1 MG/DL (2.3-4.5); POTASSIUM 3.5 MMOL/L (3.5-5.1); SODIUM 138 MMOL/L (135-145); TOTAL CARBON DIOXIDE 28.1 MMOL/L (24-32); TOTAL PROTEIN 7.4 G/DL (6.4-8.2); eGFR 10 ML/MIN
--- NOTE | 2018-04-06 06:37 | NUR ---
Problems reprioritized. Patient report given, questions answered & plan of care reviewed with Aniket BISHOP. Addendum: 04/06/18 at 0638 by Meagan Lockett RN Amended: Links added.
--- NOTE | 2018-04-06 06:48 | NUR ---
Patient in room [facility] 349. I have received report from EDNA ZUÑIGA and had the opportunity to ask questions and assume patient care.
--- NOTE | 2018-04-06 06:51 | NUR ---
Patient in room [facility] 349. I have received report from EDNA ZUÑIGA and had the opportunity to ask questions and assume patient care.
[2018-04-06 08:00] VITALS: BP 123/83
[2018-04-06] MEDS: docusate sod 100mg capsule PO SCH ×2 (08:00→20:19)
[2018-04-06] MEDS: FLUoxetine 10mg capsule PO SCH (08:03)
[2018-04-06] MEDS: heparin, porcine 5000 units/ml vial SQ SCH ×2 (08:04→20:20)
[2018-04-06] MEDS: carVEDilol 3.125mg tablet PO SCH ×2 (08:04→20:19)
[2018-04-06] MEDS: atorvastatin 20mg tablet PO SCH (08:04)
[2018-04-06] MEDS: calcium acetate 667mg (PhosLO) capsule PO SCH ×3 (08:04→18:03)
[2018-04-06 11:00] VITALS: BP 125/73
--- NOTE | 2018-04-06 15:10 | NUR ---
Patient tolerated dc of alvarez catheter. No complaints at this time. Patient encouraged to ambulate and encouraged fluid po intake.
--- NOTE | 2018-04-06 18:30 | NUR ---
Patient in room [facility] 349. I have received report from Aniket BISHOP and had the opportunity to ask questions and assume patient care.
--- NOTE | 2018-04-06 18:45 | NUR ---
Problems reprioritized. Patient report given, questions answered & plan of care reviewed with EDNA BABCOCK.
[2018-04-06 19:00] VITALS: BP 121/82
[2018-04-06] MEDS: tamsulosin 0.4mg capsule PO SCH (20:19)
[2018-04-06] MEDS: lurasidone 20mg tablet PO SCH (20:21)
[2018-04-06] MEDS: acetaminophen 325mg tablet PO PRN (20:27)
[2018-04-07] VITALS: BP 117/72
--- NOTE | 2018-04-07 06:30 | NUR ---
Problems reprioritized. Patient report given, questions answered & plan of care reviewed with Malinda BISHOP.
--- NOTE | 2018-04-07 06:56 | NUR ---
Patient in room [facility] 349. I have received report from EDNA Eisenberg and had the opportunity to ask questions and assume patient care.
[2018-04-07 08:00] VITALS: BP 128/86
[2018-04-07] MEDS: FLUoxetine 10mg capsule PO SCH (09:03)
[2018-04-07] MEDS: calcium acetate 667mg (PhosLO) capsule PO SCH ×3 (09:03→17:58)
[2018-04-07] MEDS: tamsulosin 0.4mg capsule PO SCH ×2 (09:03→19:58)
[2018-04-07] MEDS: docusate sod 100mg capsule PO SCH ×2 (09:03→20:00)
[2018-04-07] MEDS: atorvastatin 20mg tablet PO SCH (09:03)
[2018-04-07] MEDS: carVEDilol 3.125mg tablet PO SCH ×2 (09:03→19:58)
[2018-04-07] MEDS: heparin, porcine 5000 units/ml vial SQ SCH ×2 (09:04→19:59)
[2018-04-07 11:30] VITALS: BP 146/76
[2018-04-07 12:26] LABS: ALANINE AMINOTRANSFERASE 129 U/L (12-78); ALBUMIN 3.4 G/DL (3.4-5.0); ALBUMIN/GLOBULIN RATIO 0.8 (1.1-1.5); ALKALINE PHOSPHATASE 102 IU/L (46-116); ANION GAP 11 (8-16); ASPARTATE AMINO TRANSFERASE 42 U/L (10-37); BILIRUBIN,TOTAL 0.4 MG/DL (0.1-1.0); BLOOD UREA NITROGEN 87 MG/DL (7-18); BUN/CREATININE RATIO 18.9 (5.4-32.0); CALCIUM 9.6 MG/DL (8.5-10.1); CHLORIDE 97 MMOL/L (99-107); CREATINE KINASE 369 U/L (39-308); GLUCOSE 112 MG/DL (70-104); POTASSIUM 3.7 MMOL/L (3.5-5.1); SODIUM 137 MMOL/L (135-145); TOTAL CARBON DIOXIDE 28.6 MMOL/L (24-32); TOTAL PROTEIN 7.6 G/DL (6.4-8.2); eGFR 13 ML/MIN
--- NOTE | 2018-04-07 18:10 | NUR ---
Problems reprioritized. Patient report given, questions answered & plan of care reviewed with EDNA Eisenberg.
--- NOTE | 2018-04-07 18:30 | NUR ---
Patient in room [facility] 349. I have received report from Malinda BISHOP and had the opportunity to ask questions and assume patient care.
[2018-04-07 19:00] VITALS: BP 98/71
[2018-04-07 19:55] VITALS: BP 132/92
[2018-04-07] MEDS: lurasidone 20mg tablet PO SCH (19:58)
[2018-04-07] MEDS: acetaminophen 325mg tablet PO PRN (20:09)
[2018-04-08] VITALS: BP 117/64
--- NOTE | 2018-04-08 00:15 | NUR ---
Patient bladder scan revealed 229cc. Patinet then voided in urinal for this amount. Post void residual bladder scan immediately afterwards revealed no urine retention.
[2018-04-08] MEDS: acetaminophen 325mg tablet PO PRN (02:20)
--- NOTE | 2018-04-08 02:56 | NUR ---
Patient has had 5 juice boxes thus far and rubéno x3 and a sandwich. juice box x5 = 1200cc. Patient also drinking water. Addendum: 04/08/18 at 0257 by Faina Munoz RN Amended: Links added.
--- NOTE | 2018-04-08 06:24 | NUR ---
Patient in room [facility] 349. I have received report from EDNA Eisenberg and had the opportunity to ask questions and assume patient care.
[2018-04-08 06:34] LABS: ALANINE AMINOTRANSFERASE 107 U/L (12-78); ALBUMIN 3.3 G/DL (3.4-5.0); ALBUMIN/GLOBULIN RATIO 0.8 (1.1-1.5); ALKALINE PHOSPHATASE 116 IU/L (46-116); ANION GAP 12 (8-16); ASPARTATE AMINO TRANSFERASE 40 U/L (10-37); BILIRUBIN,TOTAL 0.3 MG/DL (0.1-1.0); BLOOD UREA NITROGEN 73 MG/DL (7-18); BUN/CREATININE RATIO 17.4 (5.4-32.0); CALCIUM 9.4 MG/DL (8.5-10.1); CHLORIDE 98 MMOL/L (99-107); GLUCOSE 122 MG/DL (70-104); POTASSIUM 3.5 MMOL/L (3.5-5.1); SODIUM 139 MMOL/L (135-145); TOTAL CARBON DIOXIDE 29.2 MMOL/L (24-32); TOTAL PROTEIN 7.3 G/DL (6.4-8.2); eGFR 15 ML/MIN
--- NOTE | 2018-04-08 06:53 | NUR ---
Problems reprioritized. Patient report given, questions answered & plan of care reviewed with Malinda BISHOP.
[2018-04-08 07:40] VITALS: BP 138/96
[2018-04-08] MEDS: docusate sod 100mg capsule PO SCH ×3 (08:00→20:00)
[2018-04-08] MEDS: calcium acetate 667mg (PhosLO) capsule PO SCH ×3 (08:12→18:26)
[2018-04-08] MEDS: atorvastatin 20mg tablet PO SCH (08:12)
[2018-04-08] MEDS: FLUoxetine 10mg capsule PO SCH (08:12)
[2018-04-08] MEDS: heparin, porcine 5000 units/ml vial SQ SCH ×2 (08:13→20:29)
[2018-04-08] MEDS: tamsulosin 0.4mg capsule PO SCH ×2 (08:13→20:29)
[2018-04-08] MEDS: carVEDilol 3.125mg tablet PO SCH ×2 (08:13→20:29)
[2018-04-08 12:13] VITALS: BP 137/86
--- NOTE | 2018-04-08 18:30 | NUR ---
Patient in room [facility] 349. I have received report from SHENA and had the opportunity to ask questions and assume patient care.
--- NOTE | 2018-04-08 18:48 | NUR ---
Problems reprioritized. Patient report given, questions answered & plan of care reviewed with EDNA Gann.
[2018-04-08 19:15] VITALS: BP 142/88
[2018-04-08] MEDS: lurasidone 20mg tablet PO SCH (20:29)
[2018-04-09] VITALS: BP 145/102
[2018-04-09 05:43] LABS: ALANINE AMINOTRANSFERASE 92 U/L (12-78); ALBUMIN 3.4 G/DL (3.4-5.0); ALBUMIN/GLOBULIN RATIO 0.9 (1.1-1.5); ALKALINE PHOSPHATASE 116 IU/L (46-116); ANION GAP 11 (8-16); ASPARTATE AMINO TRANSFERASE 34 U/L (10-37); BILIRUBIN,TOTAL 0.4 MG/DL (0.1-1.0); BLOOD UREA NITROGEN 65 MG/DL (7-18); BUN/CREATININE RATIO 18.6 (5.4-32.0); CALCIUM 9.3 MG/DL (8.5-10.1); CHLORIDE 99 MMOL/L (99-107); CREATININE 3.49 MG/DL (0.60-1.10); GLUCOSE 93 MG/DL (70-104); POTASSIUM 3.7 MMOL/L (3.5-5.1); SODIUM 139 MMOL/L (135-145); TOTAL CARBON DIOXIDE 29.2 MMOL/L (24-32); TOTAL PROTEIN 7.4 G/DL (6.4-8.2); eGFR 18 ML/MIN
--- NOTE | 2018-04-09 06:05 | NUR ---
Problems reprioritized. Patient report given, questions answered & plan of care reviewed with ISA.
--- NOTE | 2018-04-09 06:34 | NUR ---
Patient in room [facility] 349. I have received report from UCHE BISHOP and had the opportunity to ask questions and assume patient care.
[2018-04-09 07:00] VITALS: BP 104/84
[2018-04-09] MEDS: calcium acetate 667mg (PhosLO) capsule PO SCH ×2 (07:32→12:28)
[2018-04-09] MEDS: atorvastatin 20mg tablet PO SCH (08:53)
[2018-04-09] MEDS: FLUoxetine 10mg capsule PO SCH (08:53)
[2018-04-09] MEDS: carVEDilol 3.125mg tablet PO SCH (08:53)
[2018-04-09] MEDS: docusate sod 100mg capsule PO SCH (08:53)
[2018-04-09] MEDS: tamsulosin 0.4mg capsule PO SCH (08:53)
[2018-04-09] MEDS: heparin, porcine 5000 units/ml vial SQ SCH (08:54)
[2018-04-09 11:00] VITALS: BP 130/85
[2018-04-09] MEDS: acetaminophen 325mg tablet PO PRN (12:26)
[2018-04-09] MEDS ORDERED: PHO667C PO (13:18)
[2018-04-09] MEDS ORDERED: TAMS0.4C32 PO (13:18)
--- NOTE | 2018-04-09 14:48 | NUR ---
PER DR COLEY'S REQUEST, DISCHARGED PT WITH A COPY OF HIS LABS, A LAB ORDER SHEET FOR [facility] 09-06-18, A DISCHARGE SUMMERY, AND INSTRUCTIONS TO SEE DR COLEY IN ONE MONTH. [facility] DELIVERED [facility] BEDSIDE.
== END 2018-04-09 15:30 | disposition home or self-care (01) | DRG 280 ==
LOC: ER 12:03 → ED HOLD 14:51 → PCU 3S 16:40 → SUR 3N 04-03 15:56
PROVIDERS: ADMIT Internal Medicine Critical Care Medicine; ATTEND Internal Medicine Critical Care Medicine
DX: K70.9 Alcoholic liver disease, unspecified (principal); N17.9 Acute kidney failure, unspecified; E87.5 Hyperkalemia; M62.82 Rhabdomyolysis; F20.9 Schizophrenia, unspecified; I12.9 Hypertensive chronic kidney disease with stage 1 through stage 4 chronic kidney disease, or unspecified chronic kidney disease; I25.10 Atherosclerotic heart disease of native coronary artery without angina pectoris; J43.9 Emphysema, unspecified; N18.9 Chronic kidney disease, unspecified; Z59.0 Homelessness; I25.2 Old myocardial infarction; Z85.038 Personal history of other malignant neoplasm of large intestine; Z90.49 Acquired absence of other specified parts of digestive tract; Z23 Encounter for immunization; Z92.21 Personal history of antineoplastic chemotherapy; Z92.3 Personal history of irradiation; Z88.8 Allergy status to other drugs, medicaments and biological substances
CPT/HCPCS: 36415; 71045; 76775; 80053; 80069; 80305; 81001; 82150; 82550; 82570; 82948; 83605; 83735; 84100; 84132; 84133; 84145; 84155; 84156; 84165; 84300; 84484; 85025; 85610; 85730; 87040; 87070; 93005; 96365; 96375; 99285; G0378; J0610; J0696; J1200; J1644; J1815; J3411; J7030; Q2037

== ENCOUNTER 2018-04-23 16:19 | Emergency (ER) | payer MEDICAID ==
[~2018-04-23] VITALS: Ht 185.4 cm; Wt 136.0 kg
[~2018-04-23 16:19] MED LIST changes: +PHO667C PO; +TAMS0.4C32 PO
[2018-04-23] MEDS ORDERED: thiamine 100mg/ml 2ml inj. IV ONE (16:35)
[2018-04-23] MEDS ORDERED: normal saline 1000ML IV soln IVB ONE (16:35)
[2018-04-23] MEDS ORDERED: folic acid 1mg/0.2ml inj IV ONE (16:35)
[2018-04-23] MEDS ORDERED: potassium Cl oral solution 20 MEQ/15 ML PO ONE (16:45)
[2018-04-23 17:11] LABS: BASOPHILS % (AUTO) 0.7 % (0-1); EOSINOPHILS # (AUTO) 0.3 X10'3 (0-0.9); EOSINOPHILS % (AUTO) 5.2 % (0-6); HEMATOCRIT 38.5 % (42.0-52.0); HEMOGLOBIN 12.8 g/dl (14.0-17.9); LYMPHOCYTES # (AUTO) 2.6 X10'3 (1.1-4.8); LYMPHOCYTES % (AUTO) 39.5 % (21-51); MEAN CORPUSCULAR HEMOGLOBIN 30.6 PG (27.0-31.0); MEAN CORPUSCULAR HGB CONC 33.3 g/dL (33.0-36.5); MEAN CORPUSCULAR VOLUME 91.9 FL (78-98); MEAN PLATELET VOLUME 7.2 FL (7.4-10.4); MONOCYTES # (AUTO) 0.4 X10'3 (0-0.9); MONOCYTES % (AUTO) 6.9 % (2-12); NEUTROPHILS # (AUTO) 3.1 X10'3 (1.8-7.7); NEUTROPHILS % (AUTO) 47.7 % (42-75); PLATELET COUNT 112 X10'3 (140-440); RED BLOOD COUNT 4.18 X10'6 (4.70-6.10); RED CELL DISTRIBUTION WIDTH 13.5 % (11.5-14.5); WHITE BLOOD COUNT 6.5 X10'3 (4.5-11.0)
[2018-04-23 17:32] LABS: ALANINE AMINOTRANSFERASE 39 U/L (12-78); ALBUMIN 3.7 G/DL (3.4-5.0); ALKALINE PHOSPHATASE 113 IU/L (46-116); ANION GAP 11 (8-16); ASPARTATE AMINO TRANSFERASE 26 U/L (10-37); BILIRUBIN,TOTAL 0.2 MG/DL (0.1-1.0); BLOOD UREA NITROGEN 23 MG/DL (7-18); CALCIUM 8.7 MG/DL (8.5-10.1); CHLORIDE 105 MMOL/L (99-107); CREATININE 1.44 MG/DL (0.60-1.10); ETHANOL 0.273 GM/DL (0.0-0.010); GLUCOSE 86 MG/DL (70-104); SODIUM 144 MMOL/L (135-145); TOTAL CARBON DIOXIDE 27.9 MMOL/L (24-32); TOTAL PROTEIN 7.5 G/DL (6.4-8.2); eGFR 50 ML/MIN
[2018-04-23 17:33] VITALS: BP 129/97
[2018-04-23] MEDS ORDERED: LORA-269 PO (17:40)
[2018-04-23] MEDS ORDERED: GABA300C PO (17:40)
--- NOTE | 2018-04-23 18:10 | NUR ---
RN WAS IN ROOM 3 WHEN HE HEARD A THUD, PT WAS FOUND ON THE FLOOR IN THE [facility] RIGHT OUTSIDE HIS ROOM. PROVIDER AND INTERIOR PANELER WERE NOTIFIED, WILL FILL OUT OCCURENCE REPORT.
[2018-04-23 18:30] LABS: CLARITY,URINE CLEAR (Clear); COLOR,URINE STRAW (Yellow); UA COLLECTION TYPE CLN CATCH MIDSTREAM; URINE AMPHETAMINE SCREEN NEGATIVE (Neg); URINE BARBITUATE SCREEN NEGATIVE (Neg); URINE BENZODIAZEPINES SCREEN POSITIVE (Neg); URINE CANNABINOID SCREEN NEGATIVE (Neg); URINE COCAINE SCREEN NEGATIVE (Neg); URINE METHADONE SCREEN NEGATIVE (Neg); URINE OPIATE SCREEN NEGATIVE (Neg); URINE PHENCYCLIDINE SCREEN NEGATIVE (Neg)
[2018-04-23 18:31] LABS: GLUCOSE, URINE NEGATIVE (Neg); KETONES,URINE NEGATIVE (Neg); LEUKOCYTE ESTERASE ,URINE NEGATIVE (Neg); NITRITES, URINE NEGATIVE (Neg); OCCULT BLOOD,URINE NEGATIVE (Neg); PH,URINE 5.5 (4.8-8.0); PROTEIN,URINE NEGATIVE (Neg); UROBILINOGEN,URINE 0.2 E.U/dL (0.2-1.0)
== END 2018-04-23 20:31 | disposition home or self-care (01) ==
LOC: ER 16:19
DX: F10.929 Alcohol use, unspecified with intoxication, unspecified (principal); N18.9 Chronic kidney disease, unspecified; I25.10 Atherosclerotic heart disease of native coronary artery without angina pectoris; I25.2 Old myocardial infarction; F12.90 Cannabis use, unspecified, uncomplicated; F15.90 Other stimulant use, unspecified, uncomplicated; Z56.0 Unemployment, unspecified; Z90.49 Acquired absence of other specified parts of digestive tract; Z88.8 Allergy status to other drugs, medicaments and biological substances
CPT/HCPCS: 36415; 80053; 80305; 80320; 81003; 85025; 93005; 96374; 96375; 99284; J3411; J3490; J7030

== ENCOUNTER 2018-09-10 13:14 | Emergency (ER) | payer MEDICAID ==
[~2018-09-10] VITALS: Ht 185.4 cm; Wt 132.3 kg
[~2018-09-10 13:14] MED LIST changes: +GABA300C PO; +LORA-269 PO
[2018-09-10 13:53] VITALS: BP 131/94
[2018-09-10 14:43] LABS: ALANINE AMINOTRANSFERASE 89 U/L (12-78); ALBUMIN 3.6 G/DL (3.4-5.0); ALBUMIN/GLOBULIN RATIO 0.9 (1.1-1.5); ALKALINE PHOSPHATASE 128 IU/L (46-116); ANION GAP 10 (8-16); ASPARTATE AMINO TRANSFERASE 69 U/L (10-37); BILIRUBIN,TOTAL 0.4 MG/DL (0.1-1.0); BLOOD UREA NITROGEN 11 MG/DL (7-18); BUN/CREATININE RATIO 12.1 (5.4-32.0); CALCIUM 8.8 MG/DL (8.5-10.1); CHLORIDE 101 MMOL/L (99-107); CREATININE 0.91 MG/DL (0.60-1.10); GLUCOSE 69 MG/DL (70-104); POTASSIUM 3.3 MMOL/L (3.5-5.1); SODIUM 138 MMOL/L (135-145); TOTAL CARBON DIOXIDE 26.6 MMOL/L (24-32); TOTAL PROTEIN 7.4 G/DL (6.4-8.2); eGFR 85 ML/MIN
[2018-09-13] MEDS ORDERED: MELA3TAB PO (15:17)
[2018-09-13] MEDS ORDERED: DIVA-81 PO (15:17)
[2018-09-13] MEDS ORDERED: DIPH25CA6 PO (15:17)
[2018-09-13] MEDS ORDERED: MULT1TAB74 PO (15:17)
[2018-09-13] MEDS ORDERED: MELO-100 PO (15:17)
[2018-09-13] MEDS ORDERED: TRIH2TAB3 PO (15:17)
[2018-09-13] MEDS ORDERED: ALB0.5UD IH (15:17)
[2018-09-13] MEDS ORDERED: HYDR-3686 PO (15:17)
[2018-09-13] MEDS ORDERED: FOLI0.4T2 PO (15:17)
[2018-09-13] MEDS ORDERED: THIA100T66 PO (15:17)
[2018-09-13] MEDS ORDERED: CARV25TA2 PO (15:57)
[2018-09-13] MEDS ORDERED: LURA20TA PO (16:02)
[2018-09-13] MEDS ORDERED: FOLI1TAB16 PO (16:02)
== END 2018-09-10 17:22 | disposition home or self-care (01) ==
LOC: ER 13:16
DX: F10.20 Alcohol dependence, uncomplicated (principal); I25.10 Atherosclerotic heart disease of native coronary artery without angina pectoris; I25.2 Old myocardial infarction; J43.9 Emphysema, unspecified; F41.9 Anxiety disorder, unspecified; F32.9 Major depressive disorder, single episode, unspecified; F20.9 Schizophrenia, unspecified; F12.90 Cannabis use, unspecified, uncomplicated; F15.90 Other stimulant use, unspecified, uncomplicated; Z88.8 Allergy status to other drugs, medicaments and biological substances; Z90.49 Acquired absence of other specified parts of digestive tract; Z79.899 Other long term (current) drug therapy
CPT/HCPCS: 36415; 80053; 99284

== ENCOUNTER 2019-01-05 05:57 | Emergency (ER) | payer MEDICAID ==
[~2019-01-05] VITALS: Ht 185.4 cm; Wt 105.2 kg
[~2019-01-05 05:57] MED LIST changes: +ALB0.5UD IH; -ATOR20TA66 PO; +CARV25TA2 PO; -CARV3.12 PO; +DIPH25CA52 PO; +DIVA-81 PO; +FOLI1TAB16 PO; -GABA300C PO; +HYDR-3686 PO; +LOPE-144 PO; -LORA-269 PO; +LURA20TA PO; -LURA80TA3 PO; +MELA3TAB64 PO; +MULT1TAB74 PO; -NITR0.4T51 SL; -PHO667C PO; -TAMS0.4C32 PO; +THIA100T66 PO; +TRIH2TAB3 PO
--- NOTE | 2019-01-05 06:27 | NUR ---
Dr. Moody at bedside.
[2019-01-05] MEDS ORDERED: normal saline 1000ml 1,000 ML IV ONE (06:30)
[2019-01-05] MEDS ORDERED: LORazepam 2 mg/ml vial IV ONE (06:30)
[2019-01-05] MEDS ORDERED: chlordiazePOXIDE 25mg capsule PO ONE (06:30)
[2019-01-05 06:43] LABS: BASOPHILS % (AUTO) 0.5 % (0-1); EOSINOPHILS % (AUTO) 0.6 % (0-6); HEMATOCRIT 42.8 % (42.0-52.0); HEMOGLOBIN 14.9 g/dl (14.0-17.9); LYMPHOCYTES # (AUTO) 2.5 X10'3 (1.1-4.8); LYMPHOCYTES % (AUTO) 29.7 % (21-51); MEAN CORPUSCULAR HEMOGLOBIN 31.4 PG (27.0-31.0); MEAN CORPUSCULAR HGB CONC 34.8 g/dL (33.0-36.5); MEAN CORPUSCULAR VOLUME 90.1 FL (78-98); MEAN PLATELET VOLUME 7.6 FL (7.4-10.4); MONOCYTES # (AUTO) 0.7 X10'3 (0-0.9); MONOCYTES % (AUTO) 8.3 % (2-12); NEUTROPHILS # (AUTO) 5.1 X10'3 (1.8-7.7); NEUTROPHILS % (AUTO) 60.9 % (42-75); PLATELET COUNT 141 X10'3 (140-440); RED BLOOD COUNT 4.75 X10'6 (4.70-6.10); RED CELL DISTRIBUTION WIDTH 14.2 % (11.5-14.5); WHITE BLOOD COUNT 8.4 X10'3 (4.5-11.0)
[2019-01-05 06:46] LABS: ALANINE AMINOTRANSFERASE 43 U/L (12-78); ALBUMIN 4.1 G/DL (3.4-5.0); ALBUMIN/GLOBULIN RATIO 1.1 (1.1-1.5); ALKALINE PHOSPHATASE 158 IU/L (46-116); ANION GAP 12 (8-16); ASPARTATE AMINO TRANSFERASE 50 U/L (10-37); BILIRUBIN,TOTAL 0.3 MG/DL (0.1-1.0); BLOOD UREA NITROGEN 15 MG/DL (7-18); BUN/CREATININE RATIO 14.3 (5.4-32.0); CALCIUM 8.8 MG/DL (8.5-10.1); CHLORIDE 103 MMOL/L (99-107); CREATININE 1.05 MG/DL (0.60-1.10); GLUCOSE 123 MG/DL (70-104); SODIUM 140 MMOL/L (135-145); TOTAL CARBON DIOXIDE 24.7 MMOL/L (24-32); eGFR 72 ML/MIN
[2019-01-05 06:49] LABS: CLARITY,URINE TURBID (Clear); COLOR,URINE YELLOW (Yellow); GLUCOSE, URINE NEGATIVE (Neg); KETONES,URINE NEGATIVE (Neg); LEUKOCYTE ESTERASE ,URINE NEGATIVE (Neg); NITRITES, URINE NEGATIVE (Neg); OCCULT BLOOD,URINE MODERATE (Neg); PH,URINE 5.5 (4.8-8.0); PROTEIN,URINE 30 mg/dl (Neg); UA COLLECTION TYPE VOIDED; UROBILINOGEN,URINE 0.2 E.U/dL (0.2-1.0)
[2019-01-05] MEDS ORDERED: carVEDilol 12.5mg tablet PO ONE (06:50)
[2019-01-05 06:57] LABS: AMORPHOUS URATES 3+; BACTERIA,URINE NONE SEEN /HPF (Neg); MUCUS STRANDS FEW /LPF (Neg); RBC,URINE 0-2 /HPF (0-2); SQUAMOUS EPITHELIAL CELL,UR NONE SEEN /LPF (FEW); WBC,URINE 0-4 /HPF (0-4)
--- NOTE | 2019-01-05 07:10 | NUR ---
Due meds given,denies pain at this time,given warm blanket,call light within reach.
--- NOTE | 2019-01-05 07:10 | NUR ---
patient attached to monitoring coordinator.
[2019-01-05 07:35] LABS: POTASSIUM 3.5 MMOL/L (3.5-5.1); VALPROATE < 3.0 UG/ML (50-100)
--- NOTE | 2019-01-05 07:59 | NUR ---
Patient asleep at this time.
[2019-01-05] MEDS ORDERED: carVEDilol 12.5mg tablet PO SCH (08:00)
--- NOTE | 2019-01-05 08:32 | NUR ---
no gait test at this time per Dr. Davidson.
--- NOTE | 2019-01-05 08:56 | NUR ---
patient up to the bathroom with steady gait.
[2019-01-05] MEDS ORDERED: CHLO25CA10 PO (10:58)
--- NOTE | 2019-01-05 10:58 | NUR ---
MD made aware that patient is ready to be dc'd,patient is rested,fed and is wanting to be dc'd.
[2019-01-05 11:04] VITALS: BP 148/88
== END 2019-01-05 11:05 | disposition home or self-care (01) ==
LOC: ER 05:59
DX: F10.10 Alcohol abuse, uncomplicated (principal); R11.2 Nausea with vomiting, unspecified; R19.7 Diarrhea, unspecified; I25.10 Atherosclerotic heart disease of native coronary artery without angina pectoris; I25.2 Old myocardial infarction; J44.9 Chronic obstructive pulmonary disease, unspecified; F17.200 Nicotine dependence, unspecified, uncomplicated; Z59.0 Homelessness; Z56.0 Unemployment, unspecified; Z90.49 Acquired absence of other specified parts of digestive tract; Z85.038 Personal history of other malignant neoplasm of large intestine; Z88.5 Allergy status to narcotic agent; Z88.8 Allergy status to other drugs, medicaments and biological substances; Z79.899 Other long term (current) drug therapy; Y90.9 Presence of alcohol in blood, level not specified
CPT/HCPCS: 36415; 80053; 80164; 80320; 81001; 85025; 93005; 96361; 96374; 99284; J2060; J7030

== ENCOUNTER 2019-01-07 07:31 | Emergency (ER) | payer MEDICAID ==
[~2019-01-07] VITALS: Ht 185.4 cm; Wt 134.5 kg
[~2019-01-07 07:31] MED LIST changes: +CHLO25CA10 PO
[2019-01-07 08:11] LABS: BASOPHILS # (AUTO) 0.1 X10'3 (0-0.2); BASOPHILS % (AUTO) 0.9 % (0-1); EOSINOPHILS # (AUTO) 0.1 X10'3 (0-0.9); EOSINOPHILS % (AUTO) 1.9 % (0-6); HEMOGLOBIN 14.7 g/dl (14.0-17.9); LYMPHOCYTES # (AUTO) 1.9 X10'3 (1.1-4.8); LYMPHOCYTES % (AUTO) 30.2 % (21-51); MEAN CORPUSCULAR HEMOGLOBIN 31.2 PG (27.0-31.0); MEAN CORPUSCULAR HGB CONC 35.1 g/dL (33.0-36.5); MEAN PLATELET VOLUME 7.4 FL (7.4-10.4); MONOCYTES # (AUTO) 0.4 X10'3 (0-0.9); NEUTROPHILS # (AUTO) 3.9 X10'3 (1.8-7.7); PLATELET COUNT 136 X10'3 (140-440); RED BLOOD COUNT 4.72 X10'6 (4.70-6.10); RED CELL DISTRIBUTION WIDTH 14.3 % (11.5-14.5); WHITE BLOOD COUNT 6.4 X10'3 (4.5-11.0)
[2019-01-07 08:27] LABS: ALANINE AMINOTRANSFERASE 59 U/L (12-78); ALBUMIN 3.5 G/DL (3.4-5.0); ALKALINE PHOSPHATASE 129 IU/L (46-116); ANION GAP 13 (8-16); ASPARTATE AMINO TRANSFERASE 60 U/L (10-37); BILIRUBIN,TOTAL 0.4 MG/DL (0.1-1.0); BLOOD UREA NITROGEN 17 MG/DL (7-18); BUN/CREATININE RATIO 18.5 (5.4-32.0); CALCIUM 7.9 MG/DL (8.5-10.1); CHLORIDE 104 MMOL/L (99-107); CREATININE 0.92 MG/DL (0.60-1.10); GLUCOSE 143 MG/DL (70-104); POTASSIUM 3.3 MMOL/L (3.5-5.1); SODIUM 141 MMOL/L (135-145); TOTAL CARBON DIOXIDE 23.7 MMOL/L (24-32); TOTAL PROTEIN 7.1 G/DL (6.4-8.2); eGFR 84 ML/MIN
[2019-01-07] MEDS ORDERED: ondansetron/PF 4mg/2ml inj IV ONE (08:40)
[2019-01-07] MEDS ORDERED: LORazepam 2 mg/ml vial IV ONE (08:40)
[2019-01-07] MEDS ORDERED: normal saline 1000ML IV soln IVB ONE (08:40)
[2019-01-07 09:45] VITALS: BP 169/109
[2019-01-07] MEDS ORDERED: ONDA8TAB6 PO (09:48)
== END 2019-01-07 11:08 | disposition home or self-care (01) ==
LOC: ER 07:31
DX: R11.2 Nausea with vomiting, unspecified (principal); R19.7 Diarrhea, unspecified; R10.33 Periumbilical pain; I25.10 Atherosclerotic heart disease of native coronary artery without angina pectoris; I25.2 Old myocardial infarction; J44.9 Chronic obstructive pulmonary disease, unspecified; F41.9 Anxiety disorder, unspecified; F32.9 Major depressive disorder, single episode, unspecified; F20.9 Schizophrenia, unspecified; F10.20 Alcohol dependence, uncomplicated; Z60.2 Problems related to living alone; Z59.0 Homelessness; Z90.49 Acquired absence of other specified parts of digestive tract; Z85.038 Personal history of other malignant neoplasm of large intestine; Z88.8 Allergy status to other drugs, medicaments and biological substances; Z79.899 Other long term (current) drug therapy; Y90.9 Presence of alcohol in blood, level not specified
CPT/HCPCS: 36415; 80053; 85025; 96361; 96374; 96375; 99284; J2060; J2405; J7030

== ENCOUNTER 2019-01-13 08:31 | Emergency (ER) | payer MEDICAID, OTHER ==
[~2019-01-13] VITALS: Ht 185.4 cm; Wt 132.3 kg
[~2019-01-13 08:31] MED LIST changes: +ONDA8TAB6 PO
[2019-01-13] MEDS ORDERED: ketorolac trometh inj. 60 MG/2 ML VIAL IM ONE (09:10)
[2019-01-13 09:42] VITALS: BP 175/90
== END 2019-01-13 09:46 | disposition home or self-care (01) ==
LOC: ER 08:32
DX: S40.011A Contusion of right shoulder, initial encounter (principal); F10.129 Alcohol abuse with intoxication, unspecified; I25.10 Atherosclerotic heart disease of native coronary artery without angina pectoris; I25.2 Old myocardial infarction; J44.9 Chronic obstructive pulmonary disease, unspecified; F41.9 Anxiety disorder, unspecified; F32.9 Major depressive disorder, single episode, unspecified; F20.9 Schizophrenia, unspecified; Z90.49 Acquired absence of other specified parts of digestive tract; Z60.2 Problems related to living alone; Z59.0 Homelessness; Z56.0 Unemployment, unspecified; Z88.8 Allergy status to other drugs, medicaments and biological substances; Z79.899 Other long term (current) drug therapy; Z85.038 Personal history of other malignant neoplasm of large intestine; W01.0XXA Fall on same level from slipping, tripping and stumbling without subsequent striking against object, initial encounter; Y93.89 Activity, other specified; Y92.89 Other specified places as the place of occurrence of the external cause; Y99.8 Other external cause status; Y90.9 Presence of alcohol in blood, level not specified
CPT/HCPCS: 70450; 73030; 96372; 99284; J1885

== ENCOUNTER 2019-01-14 18:05 | Emergency (ER) | payer MEDICAID, OTHER ==
[~2019-01-14] VITALS: Ht 185.4 cm; Wt 134.1 kg
[2019-01-14] MEDS ORDERED: thiamine inj. 100 MG in normal saline 100ml IV soln 99 ML IV ONE (18:35)
[2019-01-14] MEDS ORDERED: normal saline 1000ML IV soln IVB ONE (18:35)
[2019-01-14] MEDS ORDERED: phenobarbital inj 260 MG in normal saline 100ml IV soln 99 ML IV ONE (18:35)
[2019-01-14] MEDS ORDERED: magnesium 2GM in 50ml NS 50 ML IV ONE (18:35)
[2019-01-14 19:07] LABS: BASOPHILS % (AUTO) 0.5 % (0-1); EOSINOPHILS # (AUTO) 0.3 X10'3 (0-0.9); EOSINOPHILS % (AUTO) 5.4 % (0-6); HEMATOCRIT 38.1 % (42.0-52.0); HEMOGLOBIN 13.1 g/dl (14.0-17.9); LYMPHOCYTES # (AUTO) 2.5 X10'3 (1.1-4.8); LYMPHOCYTES % (AUTO) 40.9 % (21-51); MEAN CORPUSCULAR HEMOGLOBIN 31.8 PG (27.0-31.0); MEAN CORPUSCULAR HGB CONC 34.5 g/dL (33.0-36.5); MEAN CORPUSCULAR VOLUME 92.3 FL (78-98); MONOCYTES # (AUTO) 0.6 X10'3 (0-0.9); MONOCYTES % (AUTO) 10.1 % (2-12); NEUTROPHILS # (AUTO) 2.6 X10'3 (1.8-7.7); NEUTROPHILS % (AUTO) 43.1 % (42-75); RED BLOOD COUNT 4.12 X10'6 (4.70-6.10); RED CELL DISTRIBUTION WIDTH 14.9 % (11.5-14.5); WHITE BLOOD COUNT 6.1 X10'3 (4.5-11.0)
[2019-01-14 19:20] LABS: ALANINE AMINOTRANSFERASE 90 U/L (12-78); ALBUMIN 2.9 G/DL (3.4-5.0); ALBUMIN/GLOBULIN RATIO 0.7 (1.1-1.5); ALKALINE PHOSPHATASE 155 IU/L (46-116); ANION GAP 14 (8-16); ASPARTATE AMINO TRANSFERASE 181 U/L (10-37); BILIRUBIN,TOTAL 0.3 MG/DL (0.1-1.0); BLOOD UREA NITROGEN 15 MG/DL (7-18); BUN/CREATININE RATIO 13.4 (5.4-32.0); CALCIUM 8.1 MG/DL (8.5-10.1); CHLORIDE 107 MMOL/L (99-107); CREATININE 1.12 MG/DL (0.60-1.10); GLUCOSE 110 MG/DL (70-104); POTASSIUM 3.3 MMOL/L (3.5-5.1); SODIUM 147 MMOL/L (135-145); TOTAL PROTEIN 6.9 G/DL (6.4-8.2); eGFR 67 ML/MIN
[2019-01-14 19:32] LABS: ETHANOL 0.353 GM/DL (0.0-0.010)
[2019-01-14 19:37] LABS: PLATELET COUNT 93 X10'3 (140-440)
[2019-01-14] MEDS ORDERED: phenobarbital inj 130 MG in normal saline 100ml IV soln 99 ML IV PRN (20:50)
[2019-01-14] MEDS ORDERED: potassium Cl 20 mEq SR tablet PO STA (22:08)
[2019-01-14] MEDS ORDERED: phenobarbital inj 130 MG in normal saline 100ml IV soln 99 ML IV ONE (22:10)
[2019-01-15 00:04] VITALS: BP 120/78
[2019-01-15] MEDS ORDERED: CHLO25CA10 PO (16:42)
== END 2019-01-15 00:08 | disposition home or self-care (01) ==
LOC: ER 18:06
DX: F10.239 Alcohol dependence with withdrawal, unspecified (principal); E87.6 Hypokalemia; I25.10 Atherosclerotic heart disease of native coronary artery without angina pectoris; I25.2 Old myocardial infarction; J44.9 Chronic obstructive pulmonary disease, unspecified; F41.9 Anxiety disorder, unspecified; F32.9 Major depressive disorder, single episode, unspecified; F20.9 Schizophrenia, unspecified; Z90.49 Acquired absence of other specified parts of digestive tract; Z59.0 Homelessness; Z60.2 Problems related to living alone; Z56.0 Unemployment, unspecified; Z88.8 Allergy status to other drugs, medicaments and biological substances; Z79.899 Other long term (current) drug therapy; Z85.038 Personal history of other malignant neoplasm of large intestine; Y90.0 Blood alcohol level of less than 20 mg/100 ml
CPT/HCPCS: 36415; 80053; 80320; 82948; 83735; 85025; 93005; 96365; 96366; 96368; 99284; J2560; J3411; J3475; J7030

== ENCOUNTER 2019-01-15 07:27 | Emergency (ER) | payer OTHER ==
[~2019-01-15] VITALS: Ht 185.4 cm; Wt 134.7 kg
[2019-01-15 07:58] LABS: BASOPHILS % (AUTO) 0.5 % (0-1); EOSINOPHILS # (AUTO) 0.2 X10'3 (0-0.9); EOSINOPHILS % (AUTO) 3.7 % (0-6); HEMATOCRIT 38.3 % (42.0-52.0); MEAN CORPUSCULAR HEMOGLOBIN 31.5 PG (27.0-31.0); MEAN CORPUSCULAR VOLUME 92.5 FL (78-98); MEAN PLATELET VOLUME 6.9 FL (7.4-10.4); MONOCYTES # (AUTO) 0.4 X10'3 (0-0.9); MONOCYTES % (AUTO) 7.4 % (2-12); NEUTROPHILS # (AUTO) 3.7 X10'3 (1.8-7.7); NEUTROPHILS % (AUTO) 69.4 % (42-75); PLATELET COUNT 95 X10'3 (140-440); RED BLOOD COUNT 4.14 X10'6 (4.70-6.10); RED CELL DISTRIBUTION WIDTH 14.9 % (11.5-14.5); WHITE BLOOD COUNT 5.3 X10'3 (4.5-11.0)
[2019-01-15 08:09] LABS: PARTIAL THROMBOPLASTIN TIME 25 SECONDS (22-32)
[2019-01-15 08:12] LABS: ALANINE AMINOTRANSFERASE 94 U/L (12-78); ALBUMIN 3.1 G/DL (3.4-5.0); ALBUMIN/GLOBULIN RATIO 0.8 (1.1-1.5); ALKALINE PHOSPHATASE 168 IU/L (46-116); ANION GAP 9 (8-16); ASPARTATE AMINO TRANSFERASE 164 U/L (10-37); BILIRUBIN,TOTAL 0.3 MG/DL (0.1-1.0); BLOOD UREA NITROGEN 15 MG/DL (7-18); BUN/CREATININE RATIO 17.4 (5.4-32.0); CALCIUM 7.5 MG/DL (8.5-10.1); CHLORIDE 107 MMOL/L (99-107); CREATININE 0.86 MG/DL (0.60-1.10); GLUCOSE 94 MG/DL (70-104); POTASSIUM 3.5 MMOL/L (3.5-5.1); SODIUM 144 MMOL/L (135-145); TOTAL CARBON DIOXIDE 27.8 MMOL/L (24-32); TOTAL PROTEIN 6.8 G/DL (6.4-8.2); eGFR > 90 ML/MIN
[2019-01-15] MEDS ORDERED: ondansetron/PF 4mg/2ml inj IV ONE (08:35)
[2019-01-15] MEDS ORDERED: normal saline 1000ML IV soln IVB ONE (08:35)
[2019-01-15] MEDS ORDERED: LORazepam 2 mg/ml vial IV ONE (08:35)
[2019-01-15 09:24] LABS: ETHANOL 0.031 GM/DL (0.0-0.010)
[2019-01-15 12:50] VITALS: BP 144/80
[2019-01-15] MEDS ORDERED: CHLO25CA10 PO (16:42)
== END 2019-01-15 12:54 | disposition home or self-care (01) ==
LOC: ER 07:27
DX: F10.129 Alcohol abuse with intoxication, unspecified (principal); I10 Essential (primary) hypertension; I25.10 Atherosclerotic heart disease of native coronary artery without angina pectoris; I25.2 Old myocardial infarction; J44.9 Chronic obstructive pulmonary disease, unspecified; F41.9 Anxiety disorder, unspecified; F32.9 Major depressive disorder, single episode, unspecified; F20.9 Schizophrenia, unspecified; E86.0 Dehydration; R79.1 Abnormal coagulation profile; Z90.49 Acquired absence of other specified parts of digestive tract; Z60.2 Problems related to living alone; Z59.0 Homelessness; Z56.0 Unemployment, unspecified; Z85.038 Personal history of other malignant neoplasm of large intestine; Z88.8 Allergy status to other drugs, medicaments and biological substances; Z79.899 Other long term (current) drug therapy; Y90.0 Blood alcohol level of less than 20 mg/100 ml
CPT/HCPCS: 36415; 71045; 80053; 80320; 84484; 85025; 85610; 85730; 93005; 96361; 96374; 96375; 99284; J2060; J2405; J7030

== ENCOUNTER 2019-01-15 15:22 | Emergency (ER) | payer OTHER ==
[~2019-01-15] VITALS: Ht 185.4 cm; Wt 138.0 kg
[2019-01-15] MEDS ORDERED: LORazepam 2 mg/ml vial IM ONE (15:45)
[2019-01-15] MEDS ORDERED: famotidine 20mg tablet PO ONE (15:45)
[2019-01-15] MEDS ORDERED: mag hydrox/Alum hydrox/simeth 30ml oral suspension PO ONE (15:45)
[2019-01-15] MEDS ORDERED: LIDOcaine Viscous 15ml cup MM ONE (15:45)
[2019-01-15] MEDS ORDERED: CHLO25CA10 PO (16:42)
[2019-01-15 17:02] VITALS: BP 126/75
== END 2019-01-15 17:04 | disposition home or self-care (01) ==
LOC: ER 15:23
DX: F10.239 Alcohol dependence with withdrawal, unspecified (principal); I25.10 Atherosclerotic heart disease of native coronary artery without angina pectoris; R51 Headache; I25.2 Old myocardial infarction; J44.9 Chronic obstructive pulmonary disease, unspecified; F41.9 Anxiety disorder, unspecified; F32.9 Major depressive disorder, single episode, unspecified; F20.9 Schizophrenia, unspecified; Z85.038 Personal history of other malignant neoplasm of large intestine; Z90.49 Acquired absence of other specified parts of digestive tract; Z60.2 Problems related to living alone; Z59.0 Homelessness; Z56.0 Unemployment, unspecified; Z88.8 Allergy status to other drugs, medicaments and biological substances; Z79.899 Other long term (current) drug therapy; Y90.0 Blood alcohol level of less than 20 mg/100 ml
CPT/HCPCS: 96372; 99284; J2060; 99283

== ENCOUNTER 2019-01-28 01:52 | Emergency (ER) | payer OTHER ==
[~2019-01-28] VITALS: Ht 185.4 cm; Wt 131.8 kg
[2019-01-28] MEDS ORDERED: folic acid 1mg tablet PO ONE (02:00)
[2019-01-28] MEDS ORDERED: chlordiazePOXIDE 25mg capsule PO ONE (02:00)
[2019-01-28] MEDS ORDERED: thiamine 100mg tablet PO ONE (02:00)
--- NOTE | 2019-01-28 02:02 | NUR ---
Pt SOB, states he has emphysema. States past 2 mo it has been flaring.
--- NOTE | 2019-01-28 02:07 | NUR ---
in triage I put a bandaide on his heel.
[2019-01-28] MEDS ORDERED: diazepam 5mg tablet PO ONE (02:10)
--- NOTE | 2019-01-28 02:11 | NUR ---
MD made aware of expiratory wheezes heard on posterior bilat lower lobes. to input RICK tx. orders.
[2019-01-28] MEDS ORDERED: dexamethasone 4mg tablet PO ONE (02:15)
[2019-01-28] MEDS ORDERED: albuterol 2.5 MG/3 ML nebule NEB ONE (02:15)
--- NOTE | 2019-01-28 02:27 | NUR ---
Pt. found walking out of room, pleasantly insisting that he is good to leave the ED. Education provided regarding medications recently administered. Pt. states "I will be fine. I'm just walking over to the [employer] restaurant." Pt. advised to stay in the ER for atleast an hour, but he insisted to go.
[2019-01-28 02:36] VITALS: BP 148/99
== END 2019-01-28 02:37 | disposition home or self-care (01) ==
LOC: ER 01:52
DX: S90.811A Abrasion, right foot, initial encounter (principal); F10.239 Alcohol dependence with withdrawal, unspecified; J44.0 Chronic obstructive pulmonary disease with (acute) lower respiratory infection; J20.9 Acute bronchitis, unspecified; J44.9 Chronic obstructive pulmonary disease, unspecified; I25.10 Atherosclerotic heart disease of native coronary artery without angina pectoris; I25.2 Old myocardial infarction; N28.9 Disorder of kidney and ureter, unspecified; F32.9 Major depressive disorder, single episode, unspecified; F41.9 Anxiety disorder, unspecified; F20.9 Schizophrenia, unspecified; F17.299 Nicotine dependence, other tobacco product, with unspecified nicotine-induced disorders; Z90.49 Acquired absence of other specified parts of digestive tract; Z59.0 Homelessness; Z56.0 Unemployment, unspecified; Z60.2 Problems related to living alone; Z88.8 Allergy status to other drugs, medicaments and biological substances; Z79.899 Other long term (current) drug therapy; X58.XXXA Exposure to other specified factors, initial encounter; Y93.89 Activity, other specified; Y92.89 Other specified places as the place of occurrence of the external cause; Y99.8 Other external cause status; Y90.0 Blood alcohol level of less than 20 mg/100 ml
CPT/HCPCS: 94640; 94760; 99284

== ENCOUNTER 2019-02-01 10:10 | Emergency (ER) | payer OTHER ==
[~2019-02-01] VITALS: Ht 185.4 cm; Wt 87.3 kg
[2019-02-01 12:11] VITALS: BP 147/82
== END 2019-02-01 12:13 | disposition home or self-care (01) ==
LOC: ER 10:10
DX: F10.129 Alcohol abuse with intoxication, unspecified (principal); I25.10 Atherosclerotic heart disease of native coronary artery without angina pectoris; I25.2 Old myocardial infarction; J44.9 Chronic obstructive pulmonary disease, unspecified; F41.9 Anxiety disorder, unspecified; F32.9 Major depressive disorder, single episode, unspecified; F20.9 Schizophrenia, unspecified; Z60.2 Problems related to living alone; Z59.0 Homelessness; Z56.0 Unemployment, unspecified; Z88.8 Allergy status to other drugs, medicaments and biological substances; Z79.899 Other long term (current) drug therapy
CPT/HCPCS: 70450; 99284

== ENCOUNTER 2019-02-07 07:29 | Observation (INO) | payer OTHER ==
[~2019-02-07] VITALS: Ht 185.4 cm; Wt 134.1 kg
[2019-02-07] MEDS ORDERED: LORazepam 2 mg/ml vial IV ONE (07:40)
--- NOTE | 2019-02-07 07:40 | NUR ---
called to lab to draw blood, stated sending labor supervisor now.
[2019-02-07 08:27] LABS: BASOPHILS % (AUTO) 0.3 % (0-1); EOSINOPHILS # (AUTO) 0.1 X10'3 (0-0.9); EOSINOPHILS % (AUTO) 1.8 % (0-6); LYMPHOCYTES # (AUTO) 2.7 X10'3 (1.1-4.8); MONOCYTES # (AUTO) 0.4 X10'3 (0-0.9); RED BLOOD COUNT 4.45 X10'6 (4.70-6.10); WHITE BLOOD COUNT 4.2 X10'3 (4.5-11.0)
[2019-02-07 08:29] LABS: HEMATOCRIT 42.7 % (42.0-52.0); HEMOGLOBIN 14.6 g/dl (14.0-17.9); MEAN CORPUSCULAR HEMOGLOBIN 32.7 PG (27.0-31.0); MEAN CORPUSCULAR HGB CONC 34.1 g/dL (33.0-36.5); MEAN PLATELET VOLUME 7.4 FL (7.4-10.4); NEUTROPHILS % (AUTO) 24.9 % (42-75); PLATELET COUNT 91 X10'3 (140-440); RED CELL DISTRIBUTION WIDTH 16.9 % (11.5-14.5)
[2019-02-07 08:44] LABS: ALANINE AMINOTRANSFERASE 65 U/L (12-78); ALBUMIN 3.4 G/DL (3.4-5.0); ALBUMIN/GLOBULIN RATIO 0.9 (1.1-1.5); ALKALINE PHOSPHATASE 116 IU/L (46-116); ANION GAP 11 (8-16); ASPARTATE AMINO TRANSFERASE 50 U/L (10-37); BILIRUBIN,TOTAL 0.3 MG/DL (0.1-1.0); BLOOD UREA NITROGEN 14 MG/DL (7-18); BUN/CREATININE RATIO 16.7 (5.4-32.0); CALCIUM 8.2 MG/DL (8.5-10.1); CHLORIDE 108 MMOL/L (99-107); CREATININE 0.84 MG/DL (0.60-1.10); GLUCOSE 147 MG/DL (70-104); POTASSIUM 3.4 MMOL/L (3.5-5.1); SODIUM 142 MMOL/L (135-145); TOTAL CARBON DIOXIDE 22.8 MMOL/L (24-32); TOTAL PROTEIN 7.2 G/DL (6.4-8.2); eGFR > 90 ML/MIN
[2019-02-07 08:44] LABS: URINE AMPHETAMINE SCREEN NEGATIVE (Neg); URINE BARBITUATE SCREEN POSITIVE (Neg); URINE BENZODIAZEPINES SCREEN POSITIVE (Neg); URINE CANNABINOID SCREEN NEGATIVE (Neg); URINE COCAINE SCREEN NEGATIVE (Neg); URINE METHADONE SCREEN NEGATIVE (Neg); URINE OPIATE SCREEN NEGATIVE (Neg); URINE PHENCYCLIDINE SCREEN NEGATIVE (Neg)
[2019-02-07 08:51] LABS: ETHANOL < 0.010 GM/DL (0.0-0.010); MAGNESIUM 1.9 MG/DL (1.5-2.4)
[2019-02-07 08:51] LABS: COLOR,URINE YELLOW (Yellow); GLUCOSE, URINE NEGATIVE (Neg); KETONES,URINE NEGATIVE (Neg); LEUKOCYTE ESTERASE ,URINE NEGATIVE (Neg); NITRITES, URINE NEGATIVE (Neg); OCCULT BLOOD,URINE NEGATIVE (Neg); PH,URINE 5.5 (4.8-8.0); PROTEIN,URINE NEGATIVE (Neg); UROBILINOGEN,URINE 0.2 E.U/dL (0.2-1.0)
[2019-02-07 08:55] LABS: UA COLLECTION TYPE CLN CATCH MIDSTREAM
[2019-02-07 08:56] LABS: CLARITY,URINE SLIGHTLY CLOUDY (Clear)
[2019-02-07 08:58] LABS: BACTERIA,URINE NONE SEEN /HPF (Neg); CAL OXALATE CRYSTALS FEW /HPF (NEGATIVE); MUCUS STRANDS MANY /LPF (Neg); RBC,URINE NONE SEEN /HPF (0-2); SPERM FEW /HPF (NEGATIVE); SQUAMOUS EPITHELIAL CELL,UR NONE SEEN /LPF (FEW); TRANSITIONAL EPI CELLS,URINE FEW /HPF; WBC,URINE 0-4 /HPF (0-4)
[2019-02-07] MEDS ORDERED: ondansetron/PF 4mg/2ml inj IV ONE (09:10)
--- NOTE | 2019-02-07 09:18 | NUR ---
pt states hasnt taken any home meds for over a month.
[2019-02-07] MEDS ORDERED: normal saline 1000ml 1,000 ML IV SCH (09:33)
[2019-02-07] MEDS ORDERED: diphenhydrAMINE 25mg capsule PO PRN (09:35)
[2019-02-07] MEDS ORDERED: magnesium Cl slow-release 64mg tablet PO PRN (09:35)
[2019-02-07] MEDS ORDERED: bisacodyl 10mg suppository rectal RC PRN (09:35)
[2019-02-07] MEDS ORDERED: ondansetron/PF 4mg/2ml inj IV PRN (09:35)
[2019-02-07] MEDS ORDERED: potassium CL 10mEq/100ml bag 100 ML IV PRN ×2 (09:35)
[2019-02-07] MEDS ORDERED: magnesium 2GM in 50ml NS 50 ML IV PRN (09:35)
[2019-02-07] MEDS ORDERED: potassium Cl 20 mEq SR tablet PO PRN (09:35)
[2019-02-07] MEDS ORDERED: mag hydrox/Alum hydrox/simeth 30ml oral suspension PO PRN (09:35)
[2019-02-07] MEDS ORDERED: magnesium 4gm in 100ml NS 100 ML IV PRN (09:35)
[2019-02-07] MEDS ORDERED: acetaminophen 650mg rectal suppository RC PRN (09:35)
[2019-02-07] MEDS ORDERED: acetaminophen 325mg tablet PO PRN ×2 (09:35)
[2019-02-07] MEDS ORDERED: magnesium hydroxide 30ml (MOM) UD suspension PO PRN (09:35)
[2019-02-07 09:45] LABS: PLATELET ESTIMATE DECREASED; TOTAL CELLS COUNTED 100
[2019-02-07 09:46] LABS: ANISOCYTOSIS 1+
[2019-02-07] MEDS ORDERED: IPRA4AER IH (11:09)
[2019-02-07] MEDS ORDERED: FLU VACC QS2019-20 36MOS UP/PF 60 MCG/0.5 ML SYRINGE IMVAC ONE (12:05)
[2019-02-07] MEDS ORDERED: hydrOXYzine 25 MG tablet PO PRN (12:20)
[2019-02-07] MEDS ORDERED: Melatonin 3mg tablet PO PRN (12:20)
[2019-02-07] MEDS ORDERED: ipratropium/albuterol 3ml nebule IH SCH (12:30)
[2019-02-07] MEDS: potassium Cl 20 mEq SR tablet PO PRN ×2 (13:38→19:01)
[2019-02-07 14:16] VITALS: BP 133/72
--- NOTE | 2019-02-07 14:18 | NUR ---
patient received to room 2014 B and placed on tele monitor. Patient reports no pain and VSS
[2019-02-07 15:00] VITALS: BP 148/92
[2019-02-07 18:00] VITALS: BP 148/90
--- NOTE | 2019-02-07 18:08 | NUR ---
Problems reprioritized. Patient report given, questions answered & plan of care reviewed with Alida BISHOP.
--- NOTE | 2019-02-07 18:32 | NUR ---
Patient in room PCU 3014. I have received report from EDNA Mueller and had the opportunity to ask questions and assume patient care.
[2019-02-07] MEDS ORDERED: K and/or MAG REPLACEMENT MC SCH (20:00)
[2019-02-07] MEDS ORDERED: heparin, porcine 5000 units/ml vial SQ SCH (20:00)
--- NOTE | 2019-02-07 20:28 | NUR ---
PATIENT DISCHARGE: Tele and IV was D/C. Continuing meds, DM survival skills and chest pain education packet was given to the patient. Flu shot given. Potassium was 3.4 and MD was informed one replacement was given during AM shift, so he said to give one more before he is discharged. Patient said his follow up with his primary doctor is this coming Monday. Patient walked out at 1930 escorted by an aide to his taxi to get to the [place].
[2019-02-07] MEDS ORDERED: FLUoxetine 20mg capsule PO SCH (21:00)
[2019-02-07] MEDS ORDERED: lurasidone 20mg tablet PO SCH (21:00)
[2019-02-07] MEDS ORDERED: diphenhydrAMINE 25mg capsule PO SCH (21:00)
[2019-02-08] MEDS ORDERED: carVEDilol 12.5mg tablet PO SCH (08:00)
[2019-02-08] MEDS ORDERED: thiamine 100mg tablet PO SCH (08:00)
[2019-02-08] MEDS ORDERED: divalproex sod 250mg ER (24-hour) tablet PO SCH (08:00)
[2019-02-08] MEDS ORDERED: folic acid 1mg tablet PO SCH (08:00)
[2019-02-08] MEDS ORDERED: multivitamins, therapeutics tablet PO SCH (08:00)
[2019-02-11 05:21] LABS: ABG BASE EXCESS 3.7 mmol/L (-2.0-3.0); ABG HCO3 33.6 mmol/L (22.0-26.0); ABG OXYGEN SATURATION 93.5 % (95-98); ABG PCO2 (T) 78.1 mmHg (35.0-45.0); ABG PH (T) 7.251 (7.350-7.450); ABG PO2 (T) 74.3 mmHg (83-108); FCOHb 1.3 % (0.5-1.5); FMetHb 0.3 % (0.3-1.12); TOTAL HEMOGLOBIN 14.2 G/dl (14.0-17.9)
== END 2019-02-07 19:50 | disposition home or self-care (01) ==
LOC: ER 07:30 → ED HOLD 09:33 → PCU 3S 13:45
PROVIDERS: ADMIT Family Medicine; ATTEND Family Medicine
DX: R07.89 Other chest pain (principal); I25.10 Atherosclerotic heart disease of native coronary artery without angina pectoris; F20.9 Schizophrenia, unspecified; J43.9 Emphysema, unspecified; I25.2 Old myocardial infarction; K21.9 Gastro-esophageal reflux disease without esophagitis; F32.9 Major depressive disorder, single episode, unspecified; F41.9 Anxiety disorder, unspecified; Z23 Encounter for immunization; Z85.038 Personal history of other malignant neoplasm of large intestine; Z90.49 Acquired absence of other specified parts of digestive tract; Z59.0 Homelessness; Z79.899 Other long term (current) drug therapy
CPT/HCPCS: 36415; 36600; 71045; 80053; 80305; 80320; 81001; 82803; 83735; 83880; 84484; 85018; 85025; 87081; 90471; 93005; 94640; 94760; 96374; 96375; 99284; G0378; J2060; J2405; J7030; Q2037

== ENCOUNTER 2019-03-07 14:21 | Emergency (ER) | payer OTHER ==
[~2019-03-07] VITALS: Ht 188 cm; Wt 130.0 kg
[~2019-03-07 14:21] MED LIST changes: -ALB0.5UD IH; -CHLO25CA10 PO; +IPRA4AER IH; -LOPE-144 PO; -ONDA8TAB6 PO
[2019-03-07] MEDS ORDERED: normal saline 1000ML IV soln IVB ONE (15:10)
[2019-03-07 15:48] LABS: BASOPHILS % (AUTO) 0.2 % (0-1); EOSINOPHILS % (AUTO) 0.4 % (0-6); HEMATOCRIT 43.3 % (42.0-52.0); HEMOGLOBIN 14.7 g/dl (14.0-17.9); LYMPHOCYTES # (AUTO) 2.8 X10'3 (1.1-4.8); LYMPHOCYTES % (AUTO) 35.1 % (21-51); MEAN CORPUSCULAR HEMOGLOBIN 32.4 PG (27.0-31.0); MEAN CORPUSCULAR HGB CONC 33.9 g/dL (33.0-36.5); MEAN CORPUSCULAR VOLUME 95.6 FL (78-98); MEAN PLATELET VOLUME 7.2 FL (7.4-10.4); MONOCYTES # (AUTO) 0.9 X10'3 (0-0.9); MONOCYTES % (AUTO) 11.9 % (2-12); NEUTROPHILS # (AUTO) 4.2 X10'3 (1.8-7.7); NEUTROPHILS % (AUTO) 52.4 % (42-75); PLATELET COUNT 109 X10'3 (140-440); RED BLOOD COUNT 4.53 X10'6 (4.70-6.10); RED CELL DISTRIBUTION WIDTH 16.2 % (11.5-14.5); WHITE BLOOD COUNT 7.9 X10'3 (4.5-11.0)
--- NOTE | 2019-03-07 15:57 | NUR ---
PT SEVERELY INTOXICATED.
[2019-03-07 16:07] LABS: PARTIAL THROMBOPLASTIN TIME 22 SECONDS (22-32)
[2019-03-07 16:12] LABS: ALANINE AMINOTRANSFERASE 164 U/L (12-78); ALBUMIN 3.4 G/DL (3.4-5.0); ALBUMIN/GLOBULIN RATIO 0.9 (1.1-1.5); ALKALINE PHOSPHATASE 144 IU/L (46-116); ANION GAP 9 (8-16); ASPARTATE AMINO TRANSFERASE 90 U/L (10-37); BILIRUBIN,TOTAL 0.2 MG/DL (0.1-1.0); BLOOD UREA NITROGEN 16 MG/DL (7-18); BUN/CREATININE RATIO 11.3 (5.4-32.0); CALCIUM 8.1 MG/DL (8.5-10.1); CHLORIDE 104 MMOL/L (99-107); CREATININE 1.41 MG/DL (0.60-1.10); GLUCOSE 90 MG/DL (70-104); POTASSIUM 3.6 MMOL/L (3.5-5.1); SODIUM 142 MMOL/L (135-145); TOTAL CARBON DIOXIDE 28.7 MMOL/L (24-32); TOTAL PROTEIN 7.1 G/DL (6.4-8.2); eGFR 51 ML/MIN
[2019-03-07 16:13] LABS: LACTIC SEPSIS 2.3 MMOL/L (0.4-2.0)
[2019-03-07 16:17] LABS: AMMONIA < 10 UMOL/L (11-32)
[2019-03-07 16:20] LABS: ETHANOL 0.342 GM/DL (0.0-0.010)
[2019-03-07 16:25] LABS: TOTAL CELLS COUNTED 100
[2019-03-07 16:26] LABS: ANISOCYTOSIS 1+; PLATELET ESTIMATE DECREASED
[2019-03-07] MEDS ORDERED: normal saline 1000ml 1,000 ML IV ONE (17:00)
[2019-03-07 17:06] LABS: CLARITY,URINE CLEAR (Clear); COLOR,URINE STRAW (Yellow); GLUCOSE, URINE NEGATIVE (Neg); KETONES,URINE NEGATIVE (Neg); LEUKOCYTE ESTERASE ,URINE NEGATIVE (Neg); NITRITES, URINE NEGATIVE (Neg); OCCULT BLOOD,URINE NEGATIVE (Neg); PROTEIN,URINE NEGATIVE (Neg); UROBILINOGEN,URINE 0.2 E.U/dL (0.2-1.0)
[2019-03-07 17:07] LABS: UA COLLECTION TYPE CLN CATCH MIDSTREAM
[2019-03-07 17:12] LABS: URINE AMPHETAMINE SCREEN NEGATIVE (Neg); URINE BARBITUATE SCREEN NEGATIVE (Neg); URINE BENZODIAZEPINES SCREEN POSITIVE (Neg); URINE CANNABINOID SCREEN NEGATIVE (Neg); URINE COCAINE SCREEN NEGATIVE (Neg); URINE METHADONE SCREEN NEGATIVE (Neg); URINE OPIATE SCREEN NEGATIVE (Neg); URINE PHENCYCLIDINE SCREEN NEGATIVE (Neg)
[2019-03-07 17:26] LABS: MAGNESIUM 2.5 MG/DL (1.5-2.4)
[2019-03-07 18:41] VITALS: BP 102/79
== END 2019-03-07 18:44 | disposition home or self-care (01) ==
LOC: ER 14:21
DX: F10.129 Alcohol abuse with intoxication, unspecified (principal); I25.10 Atherosclerotic heart disease of native coronary artery without angina pectoris; I25.2 Old myocardial infarction; J44.9 Chronic obstructive pulmonary disease, unspecified; Z59.0 Homelessness; Z56.0 Unemployment, unspecified; Z90.49 Acquired absence of other specified parts of digestive tract; Z85.038 Personal history of other malignant neoplasm of large intestine; Z88.8 Allergy status to other drugs, medicaments and biological substances; Z79.899 Other long term (current) drug therapy; Y90.9 Presence of alcohol in blood, level not specified
CPT/HCPCS: 36415; 70450; 71045; 72125; 80053; 80305; 80320; 81003; 82140; 83605; 83735; 84484; 85025; 85610; 85730; 87040; 93005; 99284; J7030

== ENCOUNTER 2019-08-11 14:37 | Emergency (ER) | payer OTHER ==
[~2019-08-11] VITALS: Ht 185.4 cm; Wt 134.1 kg
[~2019-08-11 14:37] MED LIST changes: +MELA3TAB39 PO; -MELA3TAB64 PO; +MULT-620 PO; -MULT1TAB74 PO
[2019-08-11] MEDS ORDERED: pantoprazole IV 80 MG in normal saline 100ml IV soln 100 ML IV ONE ×4 (15:25)
[2019-08-11 15:32] LABS: BASOPHILS % (AUTO) 0.3 % (0-1); EOSINOPHILS # (AUTO) 0.1 X10'3 (0-0.9); HEMATOCRIT 38.2 % (42.0-52.0); HEMOGLOBIN 12.4 g/dl (14.0-17.9); LYMPHOCYTES % (AUTO) 35.7 % (21-51); MEAN CORPUSCULAR HEMOGLOBIN 28.9 PG (27.0-31.0); MEAN CORPUSCULAR HGB CONC 32.6 g/dL (33.0-36.5); MEAN CORPUSCULAR VOLUME 88.8 FL (78-98); MEAN PLATELET VOLUME 7.3 FL (7.4-10.4); MONOCYTES # (AUTO) 0.7 X10'3 (0-0.9); MONOCYTES % (AUTO) 12.2 % (2-12); NEUTROPHILS # (AUTO) 2.8 X10'3 (1.8-7.7); NEUTROPHILS % (AUTO) 50.8 % (42-75); PLATELET COUNT 140 X10'3 (140-440); RED CELL DISTRIBUTION WIDTH 18.1 % (11.5-14.5); WHITE BLOOD COUNT 5.5 X10'3 (4.5-11.0)
[2019-08-11 15:39] LABS: PARTIAL THROMBOPLASTIN TIME 23 SECONDS (22-32)
[2019-08-11 15:41] LABS: ALANINE AMINOTRANSFERASE 152 U/L (12-78); ALBUMIN 3.2 G/DL (3.4-5.0); ALBUMIN/GLOBULIN RATIO 0.9 (1.1-1.5); ALKALINE PHOSPHATASE 237 IU/L (46-116); ANION GAP 11 (8-16); ASPARTATE AMINO TRANSFERASE 133 U/L (10-37); BILIRUBIN,TOTAL 0.6 MG/DL (0.1-1.0); BLOOD UREA NITROGEN 8 MG/DL (7-18); BUN/CREATININE RATIO 7.1 (5.4-32.0); CALCIUM 8.4 MG/DL (8.5-10.1); CHLORIDE 105 MMOL/L (99-107); CREATININE 1.12 MG/DL (0.60-1.10); ETHANOL < 0.010 GM/DL (0.0-0.010); GLUCOSE 64 MG/DL (70-104); POTASSIUM 4.1 MMOL/L (3.5-5.1); SODIUM 143 MMOL/L (135-145); TOTAL CARBON DIOXIDE 27.3 MMOL/L (24-32); TOTAL PROTEIN 6.7 G/DL (6.4-8.2); eGFR 67 ML/MIN
[2019-08-11] MEDS ORDERED: pantoprazole 40 MG vial IV ONE (15:44)
[2019-08-11] MEDS ORDERED: pantoprazole 40MG/NS 100ML BAG 100 ML IV SCH (16:00)
[2019-08-11 16:05] LABS: OCCULT BLOOD STOOL NEGATIVE (Neg)
--- NOTE | 2019-08-11 16:27 | NUR ---
Pt has bruising to his abdomen from a "GI procedure" in [place] last week. Pt additionally has circular abrasions to his rt buttocks. Pt does not know where he got them.
[2019-08-11 16:49] LABS: MAGNESIUM 1.9 MG/DL (1.5-2.4)
[2019-08-11 17:35] VITALS: BP 134/88
== END 2019-08-11 18:13 | disposition home or self-care (01) ==
LOC: ER 14:38
DX: K62.5 Hemorrhage of anus and rectum (principal); K92.1 Melena; I25.10 Atherosclerotic heart disease of native coronary artery without angina pectoris; I50.9 Heart failure, unspecified; I25.2 Old myocardial infarction; J43.9 Emphysema, unspecified; F41.9 Anxiety disorder, unspecified; F20.9 Schizophrenia, unspecified; Z90.49 Acquired absence of other specified parts of digestive tract; Z60.2 Problems related to living alone; Z59.0 Homelessness; Z56.0 Unemployment, unspecified; Z88.8 Allergy status to other drugs, medicaments and biological substances; Z79.899 Other long term (current) drug therapy
CPT/HCPCS: 36415; 71045; 80053; 80320; 82140; 82272; 83735; 83880; 84484; 85025; 85610; 85730; 86885; 86900; 86901; 93005; 96365; 96376; 99285; C9113; 96375

== ENCOUNTER 2019-08-12 11:51 | Emergency (ER) | payer OTHER ==
[~2019-08-12] VITALS: Ht 193 cm; Wt 110.0 kg
[2019-08-12] MEDS ORDERED: normal saline 1000ML IV soln IVB ONE ×2 (12:00→14:10)
[2019-08-12 15:20] VITALS: BP 109/78
== END 2019-08-12 15:28 | disposition home or self-care (01) ==
LOC: ER 11:51
DX: F10.129 Alcohol abuse with intoxication, unspecified (principal); I25.10 Atherosclerotic heart disease of native coronary artery without angina pectoris; I50.9 Heart failure, unspecified; I25.2 Old myocardial infarction; J43.9 Emphysema, unspecified; F41.9 Anxiety disorder, unspecified; F32.9 Major depressive disorder, single episode, unspecified; F20.9 Schizophrenia, unspecified; Z90.49 Acquired absence of other specified parts of digestive tract; Z56.0 Unemployment, unspecified; Z59.0 Homelessness; Z88.8 Allergy status to other drugs, medicaments and biological substances; Z79.899 Other long term (current) drug therapy; Y90.0 Blood alcohol level of less than 20 mg/100 ml
CPT/HCPCS: 99284; J7030

== ENCOUNTER 2019-08-12 17:58 | Emergency (ER) | payer OTHER ==
[~2019-08-12] VITALS: Ht 185.4 cm; Wt 126.0 kg
[2019-08-12 18:41] LABS: BASOPHILS % (AUTO) 0.4 % (0-1); EOSINOPHILS # (AUTO) 0.1 X10'3 (0-0.9); EOSINOPHILS % (AUTO) 1.4 % (0-6); HEMATOCRIT 39.9 % (42.0-52.0); HEMOGLOBIN 12.9 g/dl (14.0-17.9); LYMPHOCYTES # (AUTO) 1.8 X10'3 (1.1-4.8); LYMPHOCYTES % (AUTO) 49.6 % (21-51); MEAN CORPUSCULAR HEMOGLOBIN 29.1 PG (27.0-31.0); MEAN CORPUSCULAR HGB CONC 32.3 g/dL (33.0-36.5); MEAN CORPUSCULAR VOLUME 90.1 FL (78-98); MEAN PLATELET VOLUME 6.4 FL (7.4-10.4); MONOCYTES # (AUTO) 0.3 X10'3 (0-0.9); MONOCYTES % (AUTO) 7.8 % (2-12); NEUTROPHILS # (AUTO) 1.4 X10'3 (1.8-7.7); NEUTROPHILS % (AUTO) 40.8 % (42-75); PLATELET COUNT 135 X10'3 (140-440); RED BLOOD COUNT 4.43 X10'6 (4.70-6.10); RED CELL DISTRIBUTION WIDTH 18.6 % (11.5-14.5); WHITE BLOOD COUNT 3.5 X10'3 (4.5-11.0)
[2019-08-12 18:56] LABS: ALANINE AMINOTRANSFERASE 132 U/L (12-78); ALBUMIN 3.1 G/DL (3.4-5.0); ALBUMIN/GLOBULIN RATIO 0.8 (1.1-1.5); ALKALINE PHOSPHATASE 163 IU/L (46-116); ANION GAP 10 (8-16); ASPARTATE AMINO TRANSFERASE 106 U/L (10-37); BILIRUBIN,TOTAL 0.5 MG/DL (0.1-1.0); BLOOD UREA NITROGEN 8 MG/DL (7-18); BUN/CREATININE RATIO 7.8 (5.4-32.0); CALCIUM 7.9 MG/DL (8.5-10.1); CHLORIDE 112 MMOL/L (99-107); CREATININE 1.02 MG/DL (0.60-1.10); GLUCOSE 79 MG/DL (70-104); POTASSIUM 4.2 MMOL/L (3.5-5.1); SODIUM 150 MMOL/L (135-145); TOTAL CARBON DIOXIDE 28.4 MMOL/L (24-32); TOTAL PROTEIN 6.8 G/DL (6.4-8.2); eGFR 74 ML/MIN
[2019-08-12 19:09] VITALS: BP 129/77
== END 2019-08-12 19:22 | disposition home or self-care (01) ==
LOC: ER 17:58
DX: R07.89 Other chest pain (principal); F10.129 Alcohol abuse with intoxication, unspecified; I25.10 Atherosclerotic heart disease of native coronary artery without angina pectoris; I50.9 Heart failure, unspecified; R06.02 Shortness of breath; I25.2 Old myocardial infarction; J43.9 Emphysema, unspecified; F41.9 Anxiety disorder, unspecified; F32.9 Major depressive disorder, single episode, unspecified; F20.9 Schizophrenia, unspecified; Z90.49 Acquired absence of other specified parts of digestive tract; Z56.0 Unemployment, unspecified; Z60.2 Problems related to living alone; Z59.0 Homelessness; Z88.8 Allergy status to other drugs, medicaments and biological substances; Z79.899 Other long term (current) drug therapy; Y90.0 Blood alcohol level of less than 20 mg/100 ml
CPT/HCPCS: 36415; 71045; 80053; 84484; 85025; 93005; 99285

== ENCOUNTER 2019-11-05 12:23 | Emergency (ER) | payer OTHER, MEDICAID ==
[~2019-11-05] VITALS: Ht 185.4 cm; Wt 127.3 kg
[2019-11-05] MEDS ORDERED: potassium Cl 20 mEq SR tablet PO STA (12:43)
[2019-11-05] MEDS ORDERED: magnesium 2GM in 50ml NS 50 ML IV ONE (12:45)
[2019-11-05] MEDS ORDERED: normal saline 1000ML IV soln IVB ONE (12:45)
[2019-11-05] MEDS ORDERED: thiamine 100mg/ml 2ml inj. IV ONE (12:45)
[2019-11-05] MEDS ORDERED: folic acid 1mg/0.2ml inj IV ONE (12:45)
[2019-11-05] MEDS ORDERED: ondansetron/PF 4mg/2ml inj IV ONE (12:45)
[2019-11-05] MEDS ORDERED: potassium Cl 10 mEq/100mL bag IV ONE (12:45)
[2019-11-05] MEDS ORDERED: MAGNESIUM IV ONE (13:00)
[2019-11-05] MEDS ORDERED: NORMAL SALINE IV ONE (13:00)
[2019-11-05] MEDS ORDERED: cloNIDine 0.1 mg tablet PO ONE (13:05)
[2019-11-05 15:05] VITALS: BP 129/94
== END 2019-11-05 15:07 | disposition home or self-care (01) ==
LOC: ER 12:23
DX: E87.6 Hypokalemia (principal); F10.10 Alcohol abuse, uncomplicated; I10 Essential (primary) hypertension; I25.10 Atherosclerotic heart disease of native coronary artery without angina pectoris; I50.9 Heart failure, unspecified; I25.2 Old myocardial infarction; J43.9 Emphysema, unspecified; F41.9 Anxiety disorder, unspecified; F32.9 Major depressive disorder, single episode, unspecified; F20.9 Schizophrenia, unspecified; F17.200 Nicotine dependence, unspecified, uncomplicated; Z86.2 Personal history of diseases of the blood and blood-forming organs and certain disorders involving the immune mechanism; Z85.038 Personal history of other malignant neoplasm of large intestine; Z90.89 Acquired absence of other organs; Z90.49 Acquired absence of other specified parts of digestive tract; Z72.89 Other problems related to lifestyle; Z60.2 Problems related to living alone; Z56.0 Unemployment, unspecified; Z59.0 Homelessness; Z88.8 Allergy status to other drugs, medicaments and biological substances; Z79.899 Other long term (current) drug therapy; Y90.9 Presence of alcohol in blood, level not specified
CPT/HCPCS: 93005; 96365; 96366; 96368; 96375; 99284; J2405; J3411; J3475; J3480; J3490; J7030

== ENCOUNTER 2019-11-06 18:13 | Emergency (ER) | payer OTHER, MEDICAID ==
[~2019-11-06] VITALS: Ht 185.4 cm; Wt 113.6 kg
[2019-11-06 18:53] LABS: BASOPHILS % (AUTO) 0.4 % (0-1); EOSINOPHILS # (AUTO) 0.2 X10'3 (0-0.9); EOSINOPHILS % (AUTO) 3.2 % (0-6); HEMATOCRIT 38.6 % (42.0-52.0); HEMOGLOBIN 12.9 g/dl (14.0-17.9); LYMPHOCYTES # (AUTO) 3.1 X10'3 (1.1-4.8); LYMPHOCYTES % (AUTO) 46.3 % (21-51); MEAN CORPUSCULAR HEMOGLOBIN 29.3 PG (27.0-31.0); MEAN CORPUSCULAR HGB CONC 33.4 g/dL (33.0-36.5); MEAN CORPUSCULAR VOLUME 87.8 FL (78-98); MEAN PLATELET VOLUME 7.4 FL (7.4-10.4); MONOCYTES # (AUTO) 0.4 X10'3 (0-0.9); MONOCYTES % (AUTO) 5.7 % (2-12); NEUTROPHILS % (AUTO) 44.4 % (42-75); PLATELET COUNT 134 X10'3 (140-440); RED BLOOD COUNT 4.39 X10'6 (4.70-6.10); RED CELL DISTRIBUTION WIDTH 16.4 % (11.5-14.5); WHITE BLOOD COUNT 6.7 X10'3 (4.5-11.0)
[2019-11-06 19:04] LABS: ALANINE AMINOTRANSFERASE 35 U/L (12-78); ALBUMIN 3.3 G/DL (3.4-5.0); ALBUMIN/GLOBULIN RATIO 0.9 (1.1-1.5); ALKALINE PHOSPHATASE 150 IU/L (46-116); ANION GAP 10 (8-16); ASPARTATE AMINO TRANSFERASE 42 U/L (10-37); BILIRUBIN,TOTAL 0.3 MG/DL (0.1-1.0); BLOOD UREA NITROGEN 7 MG/DL (7-18); BUN/CREATININE RATIO 7.7 (5.4-32.0); CALCIUM 8.7 MG/DL (8.5-10.1); CHLORIDE 105 MMOL/L (99-107); CREATININE 0.91 MG/DL (0.60-1.10); GLUCOSE 106 MG/DL (70-104); SODIUM 140 MMOL/L (135-145); TOTAL CARBON DIOXIDE 24.6 MMOL/L (24-32); TOTAL PROTEIN 6.8 G/DL (6.4-8.2); eGFR 85 ML/MIN
[2019-11-06 19:18] LABS: URINE AMPHETAMINE SCREEN NEGATIVE (Neg); URINE BARBITUATE SCREEN NEGATIVE (Neg); URINE BENZODIAZEPINES SCREEN NEGATIVE (Neg); URINE CANNABINOID SCREEN NEGATIVE (Neg); URINE COCAINE SCREEN NEGATIVE (Neg); URINE METHADONE SCREEN NEGATIVE (Neg); URINE OPIATE SCREEN NEGATIVE (Neg); URINE PHENCYCLIDINE SCREEN NEGATIVE (Neg)
[2019-11-06 19:21] LABS: ETHANOL 0.352 GM/DL (0.0-0.010)
[2019-11-06] MEDS ORDERED: potassium Cl 10 mEq/100mL bag IV ONE (20:35)
[2019-11-06] MEDS: potassium CL 10mEq/100ml bag 100 ML IV SCH ×3 (21:14→22:40)
[2019-11-06] MEDS ORDERED: normal saline 1000ml 1,000 ML IV ONE (21:20)
[2019-11-06 23:21] VITALS: BP 119/85
== END 2019-11-06 23:49 | disposition home or self-care (01) ==
LOC: ER 18:14
DX: F10.129 Alcohol abuse with intoxication, unspecified (principal); I25.10 Atherosclerotic heart disease of native coronary artery without angina pectoris; I50.9 Heart failure, unspecified; I25.2 Old myocardial infarction; J43.9 Emphysema, unspecified; F41.9 Anxiety disorder, unspecified; F32.9 Major depressive disorder, single episode, unspecified; F20.9 Schizophrenia, unspecified; Z86.2 Personal history of diseases of the blood and blood-forming organs and certain disorders involving the immune mechanism; Z85.038 Personal history of other malignant neoplasm of large intestine; Z90.89 Acquired absence of other organs; Z90.49 Acquired absence of other specified parts of digestive tract; Z72.89 Other problems related to lifestyle; Z60.2 Problems related to living alone; Z56.0 Unemployment, unspecified; Z59.0 Homelessness; Z88.8 Allergy status to other drugs, medicaments and biological substances; Z79.899 Other long term (current) drug therapy; Y90.0 Blood alcohol level of less than 20 mg/100 ml
CPT/HCPCS: 36415; 80053; 80305; 80320; 85025; 96360; 96361; 99285; J3480; J7030

== ENCOUNTER 2019-11-07 04:10 | Emergency (ER) | payer OTHER, MEDICAID | END 2019-11-07 04:19 | disposition left against medical advice (07) | LOC: ER 04:11 | DX: R51 Headache (principal); Z53.21 Procedure and treatment not carried out due to patient leaving prior to being seen by health care provider ==

== ENCOUNTER 2019-11-07 09:28 | Emergency (ER) | payer OTHER, MEDICAID ==
[~2019-11-07] VITALS: Ht 185.4 cm; Wt 131.8 kg
--- NOTE | 2019-11-07 09:42 | NUR ---
PATIENT GIVEN WARM BLANKET. SNORING AND SLEEPING, MAINTAINING AIRWAY. WILL CONTINUE TO MONITOR.
--- NOTE | 2019-11-07 10:30 | NUR ---
PATIENT CONTINUES TO SNORE AND SLEEP. SPO2 DROPPED TO 80'S. PATIENT RESPONSED TO PAINFUL STIMULI (STERNAL RUB) PATIENT PLACED ON 2L O2 NC. SPO2 IMPROVED TO HIGH 90'S.
[2019-11-07 11:07] LABS: ALBUMIN 3.7 G/DL (3.4-5.0); ANION GAP 11 (8-16); BLOOD UREA NITROGEN 8 MG/DL (7-18); BUN/CREATININE RATIO 9.9 (5.4-32.0); CALCIUM 8.2 MG/DL (8.5-10.1); CHLORIDE 104 MMOL/L (99-107); CREATININE 0.81 MG/DL (0.60-1.10); GLUCOSE 118 MG/DL (70-104); POTASSIUM 3.1 MMOL/L (3.5-5.1); SODIUM 141 MMOL/L (135-145); TOTAL CARBON DIOXIDE 26.1 MMOL/L (24-32); eGFR > 90 ML/MIN
[2019-11-07 11:11] LABS: ETHANOL 0.421 GM/DL (0.0-0.010)
--- NOTE | 2019-11-07 11:55 | NUR ---
Break relief for primary nurse, pt is resting with even and unlabored respirations.
[2019-11-07] MEDS ORDERED: potassium Cl 20 mEq SR tablet PO STA (12:08)
[2019-11-07] MEDS ORDERED: magnesium oxide 400mg tablet PO ONE (12:10)
--- NOTE | 2019-11-07 13:57 | NUR ---
Patient continues to sleep, rousal only to painful stimuli. Maintaining airway well. Patient unable to wake enough to take oral medications at this time. Dr. Marcum aware and okay with waiting to give PO medication until patient fully awake.
--- NOTE | 2019-11-07 15:52 | NUR ---
Attempted to wake patient to take PO medication. Patient unable to sit up enough and open eye. Waiting to given PO medication until patient can safely take medication.
--- NOTE | 2019-11-07 17:37 | NUR ---
Patient able to sit up, open eye and talk. Patient took PO medications. Patient incontinent of urine. Bedding changed. Attempted to gait test patient. Patient able to stand at bedside but very weak, unable to walk. Patient given warm blanket and sandwich.
--- NOTE | 2019-11-07 18:43 | NUR ---
ASSUMED ACRE OF PATIENT IN BED HOB ELEVATED AT 90 DEGREES .PT SLUMPPED OVER O2 SATS AT 89 % AND O2 IS NOT ATTACHED TO WALL AND O2 NOT ON . REPOSTIONED PT IN BED ATTACHED O2 SAT MONITOR SATS UP TO 93 % rat 2 liters . pt uypdated plan of care and given food and was able to eat it it independently without difficulty
--- NOTE | 2019-11-07 19:50 | NUR ---
awoke patient offered crackers and water .
[2019-11-07 20:32] VITALS: BP 123/94
== END 2019-11-07 20:35 | disposition home or self-care (01) ==
LOC: ER 09:29
DX: F10.229 Alcohol dependence with intoxication, unspecified (principal); E87.6 Hypokalemia; I25.10 Atherosclerotic heart disease of native coronary artery without angina pectoris; I50.9 Heart failure, unspecified; I25.2 Old myocardial infarction; J44.9 Chronic obstructive pulmonary disease, unspecified; F41.9 Anxiety disorder, unspecified; F32.9 Major depressive disorder, single episode, unspecified; F20.9 Schizophrenia, unspecified; Z90.49 Acquired absence of other specified parts of digestive tract; Z56.0 Unemployment, unspecified; Z59.0 Homelessness; Z60.2 Problems related to living alone; Z88.8 Allergy status to other drugs, medicaments and biological substances; Z79.899 Other long term (current) drug therapy; Y90.0 Blood alcohol level of less than 20 mg/100 ml
CPT/HCPCS: 36415; 80048; 80320; 99283; 99285

== ENCOUNTER 2019-12-01 04:05 | Emergency (ER) | payer OTHER, MEDICAID ==
[~2019-12-01] VITALS: Ht 185.4 cm; Wt 117.8 kg
[2019-12-01] MEDS ORDERED: normal saline 1000ML IV soln IVB ONE (04:20)
[2019-12-01 04:38] LABS: BASOPHILS % (AUTO) 0.5 % (0-1); EOSINOPHILS % (AUTO) 0.7 % (0-6); HEMATOCRIT 44.4 % (42.0-52.0); LYMPHOCYTES # (AUTO) 3.5 X10'3 (1.1-4.8); LYMPHOCYTES % (AUTO) 53.4 % (21-51); MEAN CORPUSCULAR HEMOGLOBIN 29.1 PG (27.0-31.0); MEAN CORPUSCULAR HGB CONC 33.8 g/dL (33.0-36.5); MEAN CORPUSCULAR VOLUME 86.1 FL (78-98); MONOCYTES # (AUTO) 0.4 X10'3 (0-0.9); MONOCYTES % (AUTO) 5.8 % (2-12); NEUTROPHILS # (AUTO) 2.6 X10'3 (1.8-7.7); NEUTROPHILS % (AUTO) 39.6 % (42-75); PLATELET COUNT 206 X10'3 (140-440); RED BLOOD COUNT 5.16 X10'6 (4.70-6.10); RED CELL DISTRIBUTION WIDTH 16.7 % (11.5-14.5); WHITE BLOOD COUNT 6.6 X10'3 (4.5-11.0)
[2019-12-01] MEDS ORDERED: loperamide 2mg capsule PO ONE (04:40)
[2019-12-01] MEDS ORDERED: ondansetron/PF 4mg/2ml inj IV ONE (04:45)
[2019-12-01 04:48] LABS: ALANINE AMINOTRANSFERASE 75 U/L (12-78); ALBUMIN 3.8 G/DL (3.4-5.0); ALBUMIN/GLOBULIN RATIO 0.9 (1.1-1.5); ALKALINE PHOSPHATASE 159 IU/L (46-116); ANION GAP 6 (8-16); ASPARTATE AMINO TRANSFERASE 61 U/L (10-37); BILIRUBIN,TOTAL 0.3 MG/DL (0.1-1.0); BLOOD UREA NITROGEN 10 MG/DL (7-18); BUN/CREATININE RATIO 10.3 (5.4-32.0); CHLORIDE 102 MMOL/L (99-107); CREATININE 0.97 MG/DL (0.60-1.10); ETHANOL 0.206 GM/DL (0.0-0.010); GLUCOSE 99 MG/DL (70-104); LIPASE 211 U/L (73-393); POTASSIUM 3.4 MMOL/L (3.5-5.1); SODIUM 140 MMOL/L (135-145); TOTAL CARBON DIOXIDE 31.6 MMOL/L (24-32); TOTAL PROTEIN 7.9 G/DL (6.4-8.2); eGFR 79 ML/MIN
[2019-12-01] MEDS ORDERED: LOPE2CAP PO (05:14)
[2019-12-01] MEDS ORDERED: metoclopramide 5 mg/ml inj IV ONE ×2 (05:55→06:12)
[2019-12-01 06:06] VITALS: BP 151/90
== END 2019-12-01 07:22 | disposition home or self-care (01) ==
LOC: ER 04:06
DX: R19.7 Diarrhea, unspecified (principal); R10.30 Lower abdominal pain, unspecified; I25.10 Atherosclerotic heart disease of native coronary artery without angina pectoris; I50.9 Heart failure, unspecified; I25.2 Old myocardial infarction; J43.9 Emphysema, unspecified; F41.9 Anxiety disorder, unspecified; F20.9 Schizophrenia, unspecified; Z90.49 Acquired absence of other specified parts of digestive tract; Z60.2 Problems related to living alone; Z59.0 Homelessness; Z56.0 Unemployment, unspecified; Z88.8 Allergy status to other drugs, medicaments and biological substances; Z79.899 Other long term (current) drug therapy
CPT/HCPCS: 80053; 80320; 83690; 85025; 96361; 96374; 96375; 99284; J2405; J2765; J7030

== ENCOUNTER 2019-12-08 08:11 | Emergency (ER) | payer OTHER, MEDICAID ==
[~2019-12-08] VITALS: Ht 185.4 cm; Wt 127.3 kg
[~2019-12-08 08:11] MED LIST changes: +LOPE2CAP PO
[2019-12-08 08:25] VITALS: BP 164/100
[2019-12-08] MEDS ORDERED: LOPE-144 PO (08:50)
== END 2019-12-08 09:15 | disposition home or self-care (01) ==
LOC: ER 08:11
DX: R19.7 Diarrhea, unspecified (principal); R10.9 Unspecified abdominal pain; R11.10 Vomiting, unspecified; I25.10 Atherosclerotic heart disease of native coronary artery without angina pectoris; I50.9 Heart failure, unspecified; I25.2 Old myocardial infarction; J44.9 Chronic obstructive pulmonary disease, unspecified; F41.9 Anxiety disorder, unspecified; F20.9 Schizophrenia, unspecified; F10.20 Alcohol dependence, uncomplicated; Z90.49 Acquired absence of other specified parts of digestive tract; Z60.2 Problems related to living alone; Z59.0 Homelessness; Z56.0 Unemployment, unspecified; Z88.8 Allergy status to other drugs, medicaments and biological substances; Z79.899 Other long term (current) drug therapy; Y90.0 Blood alcohol level of less than 20 mg/100 ml
CPT/HCPCS: 99282

== ENCOUNTER 2020-04-15 18:23 | Emergency (ER) | payer OTHER, MEDICAID ==
[~2020-04-15] VITALS: Ht 182.9 cm; Wt 113.6 kg
[~2020-04-15 18:23] MED LIST changes: +LOPE-144 PO
[2020-04-15] MEDS ORDERED: magnesium 2GM in 50ml NS 50 ML IV ONE (18:40)
[2020-04-15] MEDS ORDERED: normal saline 1000ML IV soln IVB ONE (18:40)
[2020-04-15] MEDS ORDERED: thiamine inj. 100 MG in normal saline 100ml IV soln 99 ML IV ONE (18:40)
[2020-04-15] MEDS ORDERED: phenobarbital inj 260 MG in normal saline 100ml IV soln 100 ML IV ONE (18:40)
[2020-04-15 19:07] LABS: BASOPHILS # (AUTO) 0.1 X10'3 (0-0.2); BASOPHILS % (AUTO) 0.6 % (0-1); EOSINOPHILS # (AUTO) 0.2 X10'3 (0-0.9); EOSINOPHILS % (AUTO) 2.1 % (0-6); HEMATOCRIT 44.7 % (42.0-52.0); HEMOGLOBIN 14.9 g/dl (14.0-17.9); LYMPHOCYTES # (AUTO) 4.1 X10'3 (1.1-4.8); LYMPHOCYTES % (AUTO) 46.6 % (21-51); MEAN CORPUSCULAR HEMOGLOBIN 29.6 PG (27.0-31.0); MEAN CORPUSCULAR HGB CONC 33.4 g/dL (33.0-36.5); MEAN CORPUSCULAR VOLUME 88.6 FL (78-98); MEAN PLATELET VOLUME 6.9 FL (7.4-10.4); MONOCYTES # (AUTO) 0.6 X10'3 (0-0.9); MONOCYTES % (AUTO) 6.4 % (2-12); NEUTROPHILS # (AUTO) 3.9 X10'3 (1.8-7.7); NEUTROPHILS % (AUTO) 44.3 % (42-75); PLATELET COUNT 156 X10'3 (140-440); RED BLOOD COUNT 5.04 X10'6 (4.70-6.10); RED CELL DISTRIBUTION WIDTH 16.5 % (11.5-14.5); WHITE BLOOD COUNT 8.7 X10'3 (4.5-11.0)
[2020-04-15 19:24] LABS: ALANINE AMINOTRANSFERASE 34 U/L (12-78); ALBUMIN 3.5 G/DL (3.4-5.0); ALBUMIN/GLOBULIN RATIO 0.9 (1.1-1.5); ALKALINE PHOSPHATASE 154 IU/L (46-116); ANION GAP 13 (8-16); ASPARTATE AMINO TRANSFERASE 27 U/L (10-37); BILIRUBIN,TOTAL 0.2 MG/DL (0.1-1.0); BLOOD UREA NITROGEN 10 MG/DL (7-18); BUN/CREATININE RATIO 9.7 (5.4-32.0); CALCIUM 9.4 MG/DL (8.5-10.1); CHLORIDE 106 MMOL/L (99-107); CREATININE 1.03 MG/DL (0.60-1.10); GLUCOSE 103 MG/DL (70-104); POTASSIUM 4.1 MMOL/L (3.5-5.1); SODIUM 144 MMOL/L (135-145); TOTAL CARBON DIOXIDE 25.1 MMOL/L (24-32); TOTAL PROTEIN 7.6 G/DL (6.4-8.2); eGFR 73 ML/MIN
[2020-04-15] MEDS ORDERED: thiamine 100mg/ml 2ml inj. IV ONE (19:30)
[2020-04-15 19:32] LABS: MAGNESIUM 2.4 MG/DL (1.5-2.4)
[2020-04-15 19:34] LABS: ETHANOL 0.356 GM/DL (0.0-0.010)
[2020-04-16] MEDS ORDERED: ketorolac trometh. 30mg/ml inj. IV ONE (07:05)
[2020-04-16] MEDS ORDERED: ondansetron/PF 4mg/2ml inj IV ONE (07:05)
--- NOTE | 2020-04-16 08:29 | NUR ---
PT STATES HE IS STILL FEELING DRUNK
--- NOTE | 2020-04-16 10:08 | NUR ---
SPOKE TO PT STATES HE IS STILL FEELING DRUNK, HAS SOME NAUSEA
[2020-04-16 13:15] VITALS: BP 109/65
== END 2020-04-16 13:17 | disposition home or self-care (01) ==
LOC: ER 18:24
DX: F10.129 Alcohol abuse with intoxication, unspecified (principal); F10.10 Alcohol abuse, uncomplicated; R41.82 Altered mental status, unspecified; I25.10 Atherosclerotic heart disease of native coronary artery without angina pectoris; I50.9 Heart failure, unspecified; I25.2 Old myocardial infarction; J43.9 Emphysema, unspecified; F41.9 Anxiety disorder, unspecified; F32.9 Major depressive disorder, single episode, unspecified; Z86.2 Personal history of diseases of the blood and blood-forming organs and certain disorders involving the immune mechanism; Z20.9 Contact with and (suspected) exposure to unspecified communicable disease; Z85.038 Personal history of other malignant neoplasm of large intestine; Z90.89 Acquired absence of other organs; Z90.49 Acquired absence of other specified parts of digestive tract; Z72.89 Other problems related to lifestyle; Z60.2 Problems related to living alone; Z56.0 Unemployment, unspecified; Z59.0 Homelessness; Z88.8 Allergy status to other drugs, medicaments and biological substances; Z79.899 Other long term (current) drug therapy; Y90.0 Blood alcohol level of less than 20 mg/100 ml
CPT/HCPCS: 36415; 80053; 80320; 82948; 83735; 85025; 93005; 96365; 96375; 99285; J1885; J2405; J2560; J3411; J3475; J7030; 99284

== ENCOUNTER 2020-10-21 16:57 | Emergency (ER) | payer OTHER, MEDICAID ==
[~2020-10-21 16:57] MED LIST changes: +ALBU8.5H17 IH; +APIX5TAB3 PO; +CARV12.5 PO; -CARV25TA2 PO; -DIPH25CA52 PO; -DIVA-81 PO; -FLUO20CA39 PO; +FLUT16SP NS; +FOLI0.4T6 PO; -FOLI1TAB16 PO; -HYDR-3686 PO; -IPRA4AER IH; -LOPE-144 PO; -LOPE2CAP PO; -LURA20TA PO; +LURA80TA3 PO; -MELA3TAB39 PO; +MULT-1085 PO; -MULT-620 PO; +NALT50TA PO; +PANT40TA54 PO; -THIA100T66 PO; +THIA50TA10 PO; -TRIH2TAB3 PO
[2020-10-21] MEDS ORDERED: HYDROcodone/acetaminophen 5mg/325mg tablet PO ONE (17:05)
[2020-10-21 17:34] LABS: BASOPHILS % (AUTO) 0.2 % (0-1); EOSINOPHILS % (AUTO) 0.3 % (0-6); HEMOGLOBIN 12.4 g/dl (14.0-17.9); LYMPHOCYTES # (AUTO) 0.7 X10'3 (1.1-4.8); LYMPHOCYTES % (AUTO) 8.1 % (21-51); MEAN CORPUSCULAR HGB CONC 33.4 g/dL (33.0-36.5); MEAN CORPUSCULAR VOLUME 89.7 FL (78-98); MEAN PLATELET VOLUME 7.1 FL (7.4-10.4); MONOCYTES # (AUTO) 0.7 X10'3 (0-0.9); MONOCYTES % (AUTO) 8.1 % (2-12); NEUTROPHILS # (AUTO) 7.3 X10'3 (1.8-7.7); NEUTROPHILS % (AUTO) 83.3 % (42-75); PLATELET COUNT 107 X10'3 (140-440); RED BLOOD COUNT 4.13 X10'6 (4.70-6.10); RED CELL DISTRIBUTION WIDTH 16.6 % (11.5-14.5); WHITE BLOOD COUNT 8.7 X10'3 (4.5-11.0)
[2020-10-21 17:47] LABS: ALANINE AMINOTRANSFERASE 30 U/L (12-78); ALBUMIN 3.7 G/DL (3.4-5.0); ALBUMIN/GLOBULIN RATIO 1.1 (1.1-1.5); ALKALINE PHOSPHATASE 139 IU/L (46-116); ANION GAP 10 (8-16); ASPARTATE AMINO TRANSFERASE 28 U/L (10-37); BLOOD UREA NITROGEN 13 MG/DL (7-18); CALCIUM 7.4 MG/DL (8.5-10.1); CHLORIDE 98 MMOL/L (99-107); CREATININE 0.93 MG/DL (0.60-1.10); GLUCOSE 85 MG/DL (70-104); POTASSIUM 3.7 MMOL/L (3.5-5.1); SODIUM 132 MMOL/L (135-145); TOTAL CARBON DIOXIDE 23.8 MMOL/L (24-32); TOTAL PROTEIN 7.2 G/DL (6.4-8.2); eGFR 82 ML/MIN
== END 2020-10-21 18:57 | disposition home or self-care (01) ==
LOC: ER 16:59
DX: M79.641 Pain in right hand (principal); M25.531 Pain in right wrist; M79.631 Pain in right forearm; I25.10 Atherosclerotic heart disease of native coronary artery without angina pectoris; I50.9 Heart failure, unspecified; I25.2 Old myocardial infarction; J43.9 Emphysema, unspecified; F41.9 Anxiety disorder, unspecified; F32.9 Major depressive disorder, single episode, unspecified; F20.9 Schizophrenia, unspecified; F12.90 Cannabis use, unspecified, uncomplicated; Z86.2 Personal history of diseases of the blood and blood-forming organs and certain disorders involving the immune mechanism; Z90.89 Acquired absence of other organs; Z90.49 Acquired absence of other specified parts of digestive tract; Z85.038 Personal history of other malignant neoplasm of large intestine; Z72.89 Other problems related to lifestyle; Z60.2 Problems related to living alone; Z56.0 Unemployment, unspecified; Z59.0 Homelessness; Z88.8 Allergy status to other drugs, medicaments and biological substances; Z79.899 Other long term (current) drug therapy
CPT/HCPCS: 29125; 36415; 73110; 80053; 84484; 85025; 99284